=== PATIENT | female | born 1970 | race Caucasian/White ===

== ENCOUNTER 2020-03-20 04:06 | Outpatient (CLI) | payer BC, SELFPAY ==
[2020-03-21 14:42] LABS: COVID-19 RT-PCR UVMMC Result Negative (Negative)
== END 2020-03-20 04:26 ==
PROVIDERS: PCP Physician Assistant Medical; Visit Provider Physician Assistant Medical
DX: R19.7 Diarrhea, unspecified (principal)
CPT/HCPCS: U0003

== ENCOUNTER 2020-04-22 14:30 | Emergency (ER) | payer BC, SELFPAY ==
[2020-04-22 14:40] VITALS: BP 165/90; PULSE 72; RESP 18; TEMP 36.4; O2SAT 99
--- NOTE | 2020-04-22 15:15 | DI.CT_ITS ---
EXAM: CT ABDOMEN PELVIS CTA CLINICAL HISTORY: abdominal pain radiating to back. TECHNIQUE: Imaging Protocol: Axial CT angiography was performed with multi-slice acquisition and m ulti-planar and/or 3D reconstructions. CONTRAST MATERIAL: Intravenous: Omnipaque 350 Contrast volume:63 mL Oral: No COMPARISON: No exams were available for comparison FINDINGS: The examination is limited due to patient motion artifact. ABDOMEN AND PELVIS: Abdomen: Celiac axis/mesenteric arteries: No evidence of occlusion or significant stenosis. Renal Arteries: No evidence of occlusion or significant stenosis. There is a single renal artery per fusing each kidney. Aorta: No evidence of occlusion or significant stenosis. No aneurysm or dissection. Mild atheroscl erosis. Pelvis: Iliac Arteries: No evidence of occlusion or significant stenosis. Mild atherosclerosis. Common Femoral Arteries: No evidence of occlusion or significant stenosis. ABDOMEN: Liver: Normal density. No measurable mass. Portal, Superior Mesenteric, and Splenic Veins: Unremarkable. Gallbladder and Biliary Tract: Status post cholecystectomy. No biliary ductal dilatation. Pancreas: Normal density, no abnormal calcifications or inflammatory process. Spleen: Normal. Adrenals: 1 cm left adrenal nodule. This likely reflects adenoma. Right adrenal gland is unremarkab le. Kidneys: Normal size, contour and axis. No radiodense stones or obstructive uropathy. No masses seen. Bowel: No obstruction or bowel wall thickening. Appendix is unremarkable. Peritoneal Cavity: No ascites, collection or mesenteric inflammatory response. No free air. Lymph Nodes: Within normal limits. Bones: Unremarkable. Soft Tissues: Unremarkable. PELVIS: Bladder: Symmetric distention, no gross wall thickening. Reproductive Organs: Status post hysterectomy. Lymph Nodes: Within normal limits. Bones: Within normal limits. IMPRESSION: 1. Unremarkable abdominal pelvic CT angiogram. 2. No acute abdominal or pelvic process. RADIATION DOSE DELIVERED: 662.1mGy.cm Total DLP 662.1mGy.cm Total DLP DATA REPOSITORY: All CT scans at this facility are submitted to the National Radiology Data Registry (NRDR) Dose Index Registry (DIR) with the [employer] [place] [employer] (A[employer]). RADIATION OPTIMIZATION: All CT scans at this facility use at least one of these dose optimization te chniques: automated exposure control; mA and/or kV adjustment per patient size (includes targeted exa ms where dose is matched to clinical indication); or iterative reconstruction.
--- NOTE | 2020-04-22 15:15 | RT.EKG_ITS ---
APPROVED REPORT Exam: Resting ECG Patient Location: E HR:59 bpm ECG Measurements Heart Rate 59 AXIS NM 152 P 43 QRSd 88 QRS 46 QT 419 T 46 QTc 416 Conclusion Sinus bradycardia...rate< 60 sinus bradycardia at 59, normal axis, no acute ischemic changes, nondiagnostic EKG
[2020-04-22 15:36] LABS: Abs Immature Grans 0.02 10^3/uL (0.0-0.06); Absolute Basophil Count 0.06 10^3/uL (0.0-0.2); Absolute Eosinophil Count 0.14 10^3/uL (0.0-0.7); Absolute Lymphocyte Count 4.73 10^3/uL (1.2-3.4); Absolute Monocyte Count 0.53 10^3/uL (0.1-0.8); Absolute Neutrophil Count 4.64 10^3/uL (1.2-6.7); Basophils % 0.6; Eosinophils % 1.4; HCT 41.3 % (36.0-46.0); HGB 13.6 g/dL (11.2-15.7); Immature Grans % 0.2; Lymphocytes % 46.7; MCH 30.3 pg (27.0-33.0); MCHC 32.9 % (32.0-36.0); MPV 9.8 fL (8.0-11.0); Monocytes % 5.2; Neutrophils % 45.9; Nucleated RBC 0 %; Platelet Count 302 10^3/uL (130-400); RBC 4.49 10^6/uL (3.93-5.22); RDW 12.8 % (11.7-14.6); RDW-SD 43.5 fL; WBC 10.12 10^3/uL (4.4-10.8)
[2020-04-22 15:48] LABS: Lipase 94 U/L (73-393)
[2020-04-22 15:52] LABS: ALT 21 U/L (14-59); AST 11 U/L (15-37); Albumin 3.7 g/dL (3.4-5.0); Alkaline Phosphatase 86 U/L (46-116); Anion Gap 8.5 mmol/L (3-11); BUN 13 mg/dL (7-18); Bilirubin, Total 0.3 mg/dL (0.2-1.0); CO2 27.5 mmol/L (21.0-32.0); CREATININE 0.6 mg/dL (0.55-1.02); Calcium 9.6 mg/dL (8.5-10.1); Chloride 106 mmol/L (98-107); Glucose 89 mg/dL (74-106); Sodium 142 mmol/L (136-145)
[2020-04-22] MEDS: Omnipaque 350 MG/ML 100 ML BTL IJ (15:59)
[2020-04-22] MEDS: Normal Saline - Diluent 50 ML VIAL IV (16:01)
[2020-04-22] MEDS: HYDROmorphone 2 MG/ML VIAL 0.5 MG IVP (16:10)
--- NOTE | 2020-04-22 16:11 | W.ED.GENAD ---
Discharge Plan Disposition Patient Disposition: HOME Condition: Stable Discharge Details Clinical Impression: Abdominal pain Primary Care Provider: Trish Byrd ED Provider: Maria L Ballesteros Home Meds and New Rx's Prescriptions: New famotidine [Pepcid] 40 mg tablet 40 mg PO DAILY Qty: 30 RF: 0 Continued Lantus Solostar U-100 Insulin 100 unit/mL (3 mL) Insulin Pen 36 unit SUBCUT BID RF: 0 Discharge Instructions Instructions: Gastritis (ED), Diet for Stomach Ulcers and Gastritis (ED), Abdominal Pain (ED) Additional Instructions: Please return immediately to the emergency department if you develop any new or worsening symptoms, if your condition does not improve as expected, or if you become otherwise concerned. It is extremely important that you call soon as possible to make an appointment to be seen in follow-up for this visit by your primary care doctor and by a surgeon as we discussed. Referrals: Trish Byrd [Primary Care Provider] - Gaby Carlos MD [ [facility] STAFF PHYSICIAN] - Discharge Data Discharge Date/Time-TO BE ENTERED AT DEPARTURE: 04/22/20 17:31 Medical Decision Making Olena Ashraf is a 49 y/o woman with h/o DM who presented to the emergency department with upper abdominal pain for one month, worsening in the past few days and significantly worse today, now radiating to the back. On exam Pt appears significantly uncomfortable, frequently changing positions in attempt to relieve pain. Benign cardiopulmonary exam. TTP of the upper abdomen, worse in epigastrium. No focal McBPt TTP, neg murphys. No lower quadrant, pelvic TTP. Concern for gastritis, PUD, possible perforation. Given radiation to back, HTN, also concern for acute aortic pathology. Exam/hx not c/w acute coronary syndrome, sepsis, pulmonary embolism, UTI, ureterolithiasis, physical therapist assistant related acute pathology. Plan for CTA abd/pelv, screening labs, IV pain medication, EKG. CTA neg for acute process per radiology. Labs and EKG non-diagnostic. Pt with some improvement in symptoms after pain meds. Pt states on reassessment that she does feel that pain has been worse after meals. States that her PCP started her omeprazole when symptoms began, but this med was discontinued as Pt reports that she had no relief from it. I had a lengthy discussion with Pt re: her diet. Pt states that she smokes cigarettes daily, has continued to have coffee, multiple glasses of lemon water per day and other citrus. She denies eating spicy food. Discussed limiting coffee, citrus, other acidic foods, smoking cessation, and other dietary changes for suspected gastritis/PUD. Pt given GI cocktail. Tolerated PO without issue. Reported no current pain after meds. Plan for trial pepcid, dietary/behavioral changes, outpt f/u with PCP, surgery for possible EGD. I had a lengthy discussion with Patient regarding return to emergency department precautions, home care, and importance of outpatient follow-up. Pt verbalizes understanding of the plan and is amenable. Patient discharged to home with clear plan for outpatient follow-up. All questions were answered. Disposition decision was made weighing the risks and benefits of hospitalization versus outpatient treatment, the risk for further decompensation, and the patient's wishes. Pt placed on care management list for outpt f/u with surgery. Medical Records Medical records reviewed: Yes I reviewed the patient's medical records. Imaging Data Radiologic Study: Attestation: I personally reviewed and interpreted this imaging study as follows: Radiologist's impression: Exam: CT Angiography Abdomen and Pelvis With Contrast Exam date and time: 04/22/2020 3:55 PM Age: 49 years old Clinical indication: Patient HX: Abdominal pain radiating to back TECHNIQUE: Imaging protocol: Computed tomographic angiography of the abdomen and pelvis with contrast material. 3D rendering (Not supervised by radiologist): MIP and/or 3D reconstructed images were created by the technologist. COMPARISON: No relevant prior studies available. FINDINGS: Aorta: No aortic aneurysm. No aortic dissection. Mild calcified plaque. Celiac trunk and mesenteric arteries: No occlusion or significant stenosis. Renal arteries: No occlusion or significant stenosis. Right iliac arteries: No occlusion or significant stenosis. Left iliac arteries: No occlusion or significant stenosis. Liver: No mass. Gallbladder and bile ducts: The gallbladder is surgically absent. Pancreas: Unremarkable. No mass. No ductal dilation. Spleen: Unremarkable. No splenomegaly. Adrenal glands: Unremarkable. No mass. Kidneys and ureters: Unremarkable. No solid mass. No hydronephrosis. Stomach and bowel: Unremarkable. No obstruction. No mucosal thickening. Appendix: No evidence of appendicitis. Intraperitoneal space: Unremarkable. No free air. No significant fluid collection. Lymph nodes: Unremarkable. No enlarged lymph nodes. Urinary bladder: Unremarkable. No mass. Reproductive: Unremarkable as visualized. Bones/joints: No acute fracture. No dislocation. Soft tissues: Unremarkable. IMPRESSION: 1. Status post cholecystectomy. 2. Unremarkable CT angiogram. Lab Data Lab results reviewed: Yes I reviewed the patient's lab results. Labs: Laboratory Tests Range/Units 04/22/20 04/22/20 04/22/20 15:25 15:25 15:25 WBC (4.4-10.8) 10^3/uL 10.12 RBC (3.93-5.22) 10^6/uL 4.49 Hgb (11.2-15.7) g/dL 13.6 Hct (36.0-46.0) % 41.3 MCV (80-95) fL 92.0 MCH (27.0-33.0) pg 30.3 MCHC (32.0-36.0) % 32.9 RDW (11.7-14.6) % 12.8 Plt Count (130-400) 10^3/uL 302 MPV (8.0-11.0) fL 9.8 Immature Gran % 0.2 Neutrophils % 45.9 Lymphocytes % 46.7 Monocytes % 5.2 Eosinophils % 1.4 Basophils % 0.6 Nucleated RBC % % 0 Absolute Neutrophils (1.2-6.7) 10^3/uL 4.64 Absolute Lymphocytes (1.2-3.4) 10^3/uL 4.73 H Absolute Monocytes (0.1-0.8) 10^3/uL 0.53 Absolute Eosinophils (0.0-0.7) 10^3/uL 0.14 Absolute Basophils (0.0-0.2) 10^3/uL 0.06 Sodium (136-145) mmol/L 142 Potassium (3.5-5.1) mmol/L 4.0 Chloride (98-107) mmol/L 106 Carbon Dioxide (21.0-32.0) mmol/L 27.5 Anion Gap (3-11) mmol/L 8.5 BUN (7-18) mg/dL 13 Creatinine (0.55-1.02) mg/dL 0.6 Estimated GFR/1.73 m2 (mL/min/1.73m2) >= 60.00 Glucose (74-106) mg/dL 89 Calcium (8.5-10.1) mg/dL 9.6 Total Bilirubin (0.2-1.0) mg/dL 0.3 AST (15-37) U/L 11 L ALT (14-59) U/L 21 Alkaline Phosphatase (46-116) U/L 86 Total Protein (6.4-8.2) g/dL 8.0 Albumin (3.4-5.0) g/dL 3.7 Lipase (73-393) U/L 94 ECG Data Attestation: I personally reviewed and interpreted this ECG (s) as follows: Interpretation: EKG shows sinus bradycardia at 59, normal axis, no acute ischemic changes, nondiagnostic EKG HPI General Mode of arrival: ambulatory. Date/Time Provider Initiated Documentation: 04/22/20 14:52. Limitations to Documentation: no limitations. Information obtained by: patient, RN notes reviewed and old records reviewed. HPI Narrative: Olena Ashraf is a 49 y/o woman with h/o DM who presents to the emergency department with abdominal pain. Pt reports that she has had upper middle abdominal for the past month, worse in the past few days and now severe. Pt reports that today when pain became severe it began to radiate into the center of her back. Now with upper abdominal pain and central back pain. She reports that she ate today without change in symptoms. Pt states that when pain began one month ago it seemed to occur after eating, now Pt is unsure if eating makes worse. She denies any lower abdominal pain since symptom onset one month ago, any other pain, fevers, vomiting, weakness, numbness, cough, SOB, diarrhea. Related Data Home Medications Medication Instructions Recorded Confirmed Lantus Solostar U-100 Insulin 36 unit SUBCUT BID 04/22/20 04/22/20 famotidine [Pepcid] 40 mg PO DAILY #30 tab 04/22/20 Previous Rx's Medication Instructions Recorded famotidine [Pepcid] 40 mg PO DAILY #30 tab 04/22/20 Allergies Allergy/AdvReac Type Severity Reaction Status Date / Time aspirin Allergy Severe Anaphylaxis Unverified 04/22/20 14:45 influenza A (H1N1) virus Allergy Severe Anaphylaxis Unverified 04/22/20 14:44 vaccine m-filipe-split 2008 [From influenza A (H1N1)] lisinopril AdvReac Skin Rash Unverified 04/22/20 14:45 General Stated Complaint: Abd Prob SANGITA: 3 Review of Systems Narrative: Constitutional: denies fevers Eyes: denies eye pain ENT: denies ear pain, dental pain, sore throat Cardiovascular: denies chest pain Respiratory: denies SOB, cough GI: denies vomiting, diarrhea, reports abdominal pain : denies flank pain MSK: denies back pain, neck pain, arthralgias, myalgias Skin: denies rash Neuro: denies headaches, numbness, weakness PFSH Social History Smoking/Tobacco Use Status: Current every day Tobacco Type: cigarettes Smoking risk assessment performed?: Yes Alcohol Intake: current Alcohol Intake frequency: holidays/special occasions only Drug use: Never Substance use type: does not use Do you feel safe at home: Yes Do you feel safe in your relationship?: Yes Exam Narrative Exam Narrative: Constitutional: appears uncomfortable and in distress, [id number], conversing normally HENT: head atraumatic/normocephalic/normal inspection, mucous membranes moist Eyes: conjunctiva normal, sclera normal, pupils 3mm b/l Neck: no stridor, normal ROM, trachea midline Chest: normal inspection Resp: normal work of breathing, LCTAB Cardio: normal rate, normal rhythm, no murmur appreciated GI: abdomen soft, diffuse significant TTP of the upper abdomen, worse in epigastrium, no TTP of the lower quadrants or pelvic area, no rebound or guarding, neg murphys, no mass, non-distended Back: normal inspection, no rash, NTTP, no CVA TTP Skin: warm, dry, normal color, no rash Neuro: alert, not altered, grossly non-focal, normal tone Ext: no edema, moving all extremities equally Psych: normal mood, normal affect, normal behavior Course Vital Signs Vital signs: Vital Signs Temperature 36.4 C L 04/22/20 14:40 Pulse 72 04/22/20 14:40 Respiratory Rate 18 04/22/20 14:40 Blood Pressure 165/90 H 04/22/20 14:40 Pulse Oximetry 99 04/22/20 14:40 Temperature 36.4 C L 04/22/20 14:40 Temperature Source Temporal Artery Scan 04/22/20 14:40 Pulse 72 04/22/20 14:40 Respiratory Rate 18 04/22/20 14:40 Respiratory Effort Non-Labored 04/22/20 14:46 Blood Pressure 165/90 H 04/22/20 14:40 Blood Pressure Position Sitting 04/22/20 14:40 Pulse Oximetry 99 04/22/20 14:40 Oxygen Delivery Method Room Air 04/22/20 14:40 Oxygen Flow Rate 0 04/22/20 14:40 Pain Level 10 04/22/20 14:46 Lab/Test Results Lab/Test Results: Laboratory Tests Range/Units 04/22/20 04/22/20 04/22/20 15:25 15:25 15:25 WBC (4.4-10.8) 10^3/uL 10.12 RBC (3.93-5.22) 10^6/uL 4.49 Hgb (11.2-15.7) g/dL 13.6 Hct (36.0-46.0) % 41.3 MCV (80-95) fL 92.0 MCH (27.0-33.0) pg 30.3 MCHC (32.0-36.0) % 32.9 RDW (11.7-14.6) % 12.8 Plt Count (130-400) 10^3/uL 302 MPV (8.0-11.0) fL 9.8 Immature Gran % 0.2 Neutrophils % 45.9 Lymphocytes % 46.7 Monocytes % 5.2 Eosinophils % 1.4 Basophils % 0.6 Nucleated RBC % % 0 Absolute Neutrophils (1.2-6.7) 10^3/uL 4.64 Absolute Lymphocytes (1.2-3.4) 10^3/uL 4.73 H Absolute Monocytes (0.1-0.8) 10^3/uL 0.53 Absolute Eosinophils (0.0-0.7) 10^3/uL 0.14 Absolute Basophils (0.0-0.2) 10^3/uL 0.06 Sodium (136-145) mmol/L 142 Potassium (3.5-5.1) mmol/L 4.0 Chloride (98-107) mmol/L 106 Carbon Dioxide (21.0-32.0) mmol/L 27.5 Anion Gap (3-11) mmol/L 8.5 BUN (7-18) mg/dL 13 Creatinine (0.55-1.02) mg/dL 0.6 Estimated GFR/1.73 m2 (mL/min/1.73m2) >= 60.00 Glucose (74-106) mg/dL 89 Calcium (8.5-10.1) mg/dL 9.6 Total Bilirubin (0.2-1.0) mg/dL 0.3 AST (15-37) U/L 11 L ALT (14-59) U/L 21 Alkaline Phosphatase (46-116) U/L 86 Total Protein (6.4-8.2) g/dL 8.0 Albumin (3.4-5.0) g/dL 3.7 Lipase (73-393) U/L 94
--- NOTE | 2020-04-22 16:19 | DI.VRAD_ITS ---
PROCEDURE INFORMATION: Exam: CT Angiography Abdomen and Pelvis With Contrast Exam date and time: 04/22/2020 3:55 PM Age: 49 years old Clinical indication: Patient HX: Abdominal pain radiating to back TECHNIQUE: Imaging protocol: Computed tomographic angiography of the abdomen and pelvis with contrast material. 3D rendering (Not supervised by radiologist): MIP and/or 3D reconstructed images were created by the technologist. COMPARISON: No relevant prior studies available. FINDINGS: Aorta: No aortic aneurysm. No aortic dissection. Mild calcified plaque. Celiac trunk and mesenteric arteries: No occlusion or significant stenosis. Renal arteries: No occlusion or significant stenosis. Right iliac arteries: No occlusion or significant stenosis. Left iliac arteries: No occlusion or significant stenosis. Liver: No mass. Gallbladder and bile ducts: The gallbladder is surgically absent. Pancreas: Unremarkable. No mass. No ductal dilation. Spleen: Unremarkable. No splenomegaly. Adrenal glands: Unremarkable. No mass. Kidneys and ureters: Unremarkable. No solid mass. No hydronephrosis. Stomach and bowel: Unremarkable. No obstruction. No mucosal thickening. Appendix: No evidence of appendicitis. Intraperitoneal space: Unremarkable. No free air. No significant fluid collection. Lymph nodes: Unremarkable. No enlarged lymph nodes. Urinary bladder: Unremarkable. No mass. Reproductive: Unremarkable as visualized. Bones/joints: No acute fracture. No dislocation. Soft tissues: Unremarkable. IMPRESSION: 1. Status post cholecystectomy. 2. Unremarkable CT angiogram. Dictated and Authenticated by: Griffin Valente MD. Ordering:CASE Lisa MD
[2020-04-22] MEDS: Normal Saline Flush 10 ML SYR IVP (16:21)
[2020-04-22 17:25] VITALS: BP 145/87; PULSE 58; RESP 14; TEMP 36.4; O2SAT 99
--- NOTE | 2020-04-22 17:50 | NUR.NOTE ---
REFERRAL FAXED TO [facility].Nursing Note:
== END 2020-04-22 17:31 | disposition home or self-care (01) ==
PROVIDERS: Emergency Provider Student in an Organized Health Care Education/Training Program; PCP Physician Assistant Medical
DX: R10.10 Upper abdominal pain, unspecified (principal); E11.9 Type 2 diabetes mellitus without complications
CPT/HCPCS: 36415; 80053; 83690; 93005; 96374; 99285; 74174; 85025; 93010; J3490

== ENCOUNTER 2023-08-03 10:00 | Emergency (ER) | payer OTHER, SELFPAY ==
[2023-08-03 10:08] VITALS: BP 187/92; PULSE 97; RESP 15; TEMP 36.8; O2SAT 99
[2023-08-03 10:33] LABS: Bilirubin Negative (Negative); Blood Negative (Negative); Clarity Clear (Clear); Glucose >=1000 mg/dL (Negative); Ketones Negative (Negative); Leukocyte Esterase Negative (Negative); Nitrite Negative (Negative); Urobilinogen 0.2 mg/dL (Up to 0.2)
--- NOTE | 2023-08-03 10:37 | W.ED.GENAD ---
Discharge Plan Disposition Patient Disposition: Home Condition: Improving Discharge Details Clinical Impression: Back strain Primary Care Provider: Trish Byrd ED Provider: Alexei Leyva Home Meds and New Rx's Prescriptions: New lidocaine [Lidoderm] 5 % adhesive patch,medicated 1 patch topical DAILY Qty: 15 0RF Rx Instructions: leave on most painful area for up to 12 hrs cyclobenzaprine 5 mg tablet 5 mg PO QHS PRN (Reason: muscle spasm) Qty: 7 0RF No Action insulin glargine [Lantus Solostar U-100 Insulin] 100 unit/mL (3 mL) Insulin Pen 36 unit SUBCUT BID famotidine [Pepcid] 40 mg tablet 40 mg PO DAILY Qty: 30 0RF acetaminophen 500 mg capsule 1,000 mg PO Q6H PRN Discharge Instructions Instructions: Low Back Strain (ED) HPI General Date/Time Provider Initiated Documentation: 08/03/23 10:04. HPI Narrative: 53-year-old female presents with left lower back pain over the last several days, started when she bent over while loading the car, pain rating down left hip down leg sharp in nature worse with movement, also endorsing paresthesia to left hand, has noted that her sugars have been out of control over the last couple of days as high as 400, has been off of her medication due to insurance issues. No chest pain or shortness of breath no vomiting, no bowel or bladder incontinence, no paresthesia or anesthesia in the genital region. No recent falls. Related Data Home Medications Medication Instructions Recorded Confirmed famotidine 40 mg tablet (Pepcid) 40 mg PO DAILY #30 tabs 04/22/20 08/03/23 insulin glargine 100 unit/mL (3 36 unit subcut BID 04/22/20 08/03/23 mL) subcutaneous pen (Lantus Solostar U-100 Insulin) acetaminophen 500 mg capsule 1,000 mg PO Q6H PRN 08/03/23 08/03/23 cyclobenzaprine 5 mg tablet 5 mg PO QHS PRN muscle spasm #7 08/03/23 tabs lidocaine 5 % topical patch 1 patch topical DAILY #15 ea 08/03/23 (Lidoderm) Previous Rx's Medication Instructions Recorded famotidine 40 mg tablet (Pepcid) 40 mg PO DAILY #30 tabs 02/08/21 cyclobenzaprine 5 mg tablet 5 mg PO QHS PRN muscle spasm #7 08/03/23 tabs lidocaine 5 % topical patch 1 patch topical DAILY #15 ea 08/03/23 (Lidoderm) Allergies Allergy/AdvReac Type Severity Reaction Status Date / Time aspirin Allergy Severe Anaphylaxis Unverified 04/22/20 14:45 influenza A (H1N1) virus Allergy Severe Anaphylaxis Unverified 04/22/20 14:44 vaccine m-filipe-split 2008 [From influenza A (H1N1)] lisinopril AdvReac Skin Rash Unverified 04/22/20 14:45 General Stated Complaint: Nk/Back Pain SANGITA: 3 Review of Systems Narrative: Review of Systems Constitutional: negative Eyes: negative ENT: negative Cardiovascular: negative Respiratory: negative Gastrointestinal: negative : negative Musculoskeletal: Leg pain, back pain Skin: negative Neurologic: negative Psych: negative Exam Narrative Exam Narrative: Physical Examination General: alert, awake, cooperative, resting comfortably, no acute distress HEENT: normocephalic, atraumatic; PERRL, EOM intact, conjunctiva normal; no nasal discharge; moist mucous membranes, oral and pharyngeal mucosa normal, tolerating secretions Neck: supple, trachea midline; full ROM Chest: normal to inspection Respiratory: normal respiratory effort, speaking in full sentences Back: Tenderness in the paraspinal region left lumbar back, no midline spinal tenderness step-off crepitus or deformity Skin: no lesions, rashes or trauma appreciated Neuro: AAOx3, normal speech, moving all extremities; 5-5 strength upper and lower extremities bilaterally ambulatory without assistance, no ataxia Extremities: Full range of motion, ambulatory Psych: Appropriate mood and affect Course Vital Signs Vital signs: Vital Signs Temperature 36.8 C 08/03/23 10:08 Pulse 97 H 08/03/23 10:08 Respiratory Rate 15 08/03/23 10:08 Blood Pressure 187/92 H 08/03/23 10:08 Pulse Oximetry 99 08/03/23 10:08 Temperature 36.8 C 08/03/23 10:08 Temperature Source Oral 08/03/23 10:08 Pulse 97 H 08/03/23 10:08 Respiratory Rate 15 08/03/23 10:08 Respiratory Effort Normal 08/03/23 10:11 Blood Pressure 187/92 H 08/03/23 10:08 Blood Pressure Position Sitting 08/03/23 10:08 Pulse Oximetry 99 08/03/23 10:08 Oxygen Delivery Method Room Air 08/03/23 10:08 Oxygen Flow Rate 0 08/03/23 10:08 Pain Level 10 08/03/23 10:11 Lab/Test Results Lab/Test Results: Laboratory Tests Range/Units 08/03/23 10:21 Urine Color (Yellow) Yellow Urine Clarity (Clear) Clear Urine pH (5-8) 6.0 Ur Specific [place] (1.005-1.025) 1.010 Urine Protein (Neg-Trace) mg/dL Negative Urine Ketones (Negative) mg/dL Negative Urine Blood (Negative) Negative Urine Nitrite (Negative) Negative Urine Bilirubin (Negative) Negative Urine Urobilinogen (Up to 0.2) mg/dL 0.2 Ur Leukocyte Esterase (Negative) Negative Urine Glucose (Negative) mg/dL >=1000 H POC- Test(urine) Negative Medical Decision Making 53-year-old female presents with left lower back discomfort rating down left leg over the last day, began while bending and loading car, no bowel or bladder issues, no saddle anesthesia or paresthesia, patient has paraspinal lumbar discomfort on palpation, ambulatory without assistance full strength upper and lower extremities bilaterally cranial nerves intact normal speech, patient has mild paresthesia to the left hand has endorsed hyperglycemia over the last several days has been noncompliant with her medication due to insurance issues. Likely sciatica/lumbar strain as predominant cause of symptomatology however paresthesia of hand might be related to metabolic derangement in the setting of uncontrolled hyperglycemia lower suspicion for ACS PE or aortic pathology. Low suspicion for spinal cord trauma abscess mass or hematoma given history and physical. Will obtain basic labs will provide IV fluid analgesia anti-inflammatory muscle relaxant 12: 21 patient resting comfortably getting some relief from medication. Noted to have hyperglycemia. Patient has been off of her Lantus for 2 years due to not having a primary care physician. Is currently working on obtaining a new primary care physician. Quality:SDOH Health Related Social Needs: No Data to Display PFSH All Active Problems (Updated 08/03/23 @ 12:21 by Alexei Leyva MD) Back strain (Acute) Social History Smoking/Tobacco Use Status: Current every day Tobacco Type: cigarettes Smoking risk assessment performed?: Yes Alcohol Intake: current Alcohol Intake frequency: holidays/special occasions only Drug use: Never Substance use type: does not use Do you feel safe at home: Yes Do you feel safe in your relationship?: Yes
[2023-08-03 10:39] LABS: Bacteria Negative HPF (Negative); C & S Indicated? No; Casts Negative LPF (Negative); Crystals Negative HPF (Negative); Epithelial Cells Few HPF (Negative); Mucus Negative (Negative); RBC 0-2 HPF (0-2); WBC 0-2 HPF (0-5)
[2023-08-03] MEDS: LORazepam 0.5 MG TAB (10:46)
[2023-08-03] MEDS: Lidocaine 5% Patch 1 PATCH TP (10:46)
[2023-08-03] MEDS: Cyclobenzaprine 10 MG TAB PO (10:46)
[2023-08-03 11:06] LABS: Abs Immature Grans 0.03 10^3/uL (0.0-0.06); HCT 48.2 % (36.0-46.0); HGB 15.9 g/dL (11.2-15.7); MCH 30.2 pg (27.0-33.0); MCV 92 fL (80-95); Platelet Count 277 10^3/uL (130-400); RBC 5.26 10^6/uL (3.93-5.22); RDW 12.8 % (11.7-14.6); RDW-SD 43.4 fL; WBC 10.94 10^3/uL (4.4-10.8)
[2023-08-03 11:07] VITALS: BP 136/80; PULSE 79; RESP 20; TEMP 36.9; O2SAT 99
[2023-08-03] MEDS: Normal Saline 1,000 ML 1000 ML IV (11:12)
[2023-08-03 11:16] LABS: Absolute Eosinophil Count 0.11 10^3/uL (0.0-0.7); Absolute Lymphocyte Count 4.81 10^3/uL (1.2-3.4); Absolute Monocyte Count 0.22 10^3/uL (0.1-0.8); Atypical Lymphocytes % 1 %; Diff Comment Manual Differential; RBC Morphology Normal
[2023-08-03 11:21] LABS: ALT 22 U/L (14-59); AST 8 U/L (15-37); Albumin 4.4 g/dL (3.4-5.0); Alkaline Phosphatase 141 U/L (46-116); Anion Gap 12.4 mmol/L (3-11); BUN 12 mg/dL (7-18); Bilirubin, Total 0.3 mg/dL (0.2-1.0); CO2 26.6 mmol/L (21.0-32.0); CREATININE 0.7 mg/dL (0.55-1.02); Calcium 10.2 mg/dL (8.5-10.1); Chloride 98 mmol/L (98-107); Estimated GFR 104.65 (mL/min/1.73m2); Glucose 354 mg/dL (74-106); Potassium 4.1 mmol/L (3.5-5.1); Sodium 137 mmol/L (136-145); Total Protein 9.2 g/dL (6.4-8.2)
[2023-08-03 12:37] VITALS: BP 134/82; PULSE 79; RESP 16; TEMP 36.9; O2SAT 99
== END 2023-08-03 12:54 | disposition home or self-care (01) ==
PROVIDERS: Emergency Provider Emergency Medicine; PCP Physician Assistant Medical
DX: S39.012A Strain of muscle, fascia and tendon of lower back, initial encounter (principal); M54.50 Low back pain, unspecified; X58.XXXA Exposure to other specified factors, initial encounter
CPT/HCPCS: 36415; 80053; 81025; 96360; 99284; 81003; 81015; 85025; 99283

== ENCOUNTER 2023-10-06 08:17 | Emergency (ER) | payer OTHER, SELFPAY ==
[2023-10-06] VITALS (35 sets, daily range): BP systolic 133–192; BP diastolic 65–92; PULSE 55–81; RESP 6–25; TEMP 36.3; O2SAT 93–100
--- NOTE | 2023-10-06 08:15 | RT.EKG_ITS ---
APPROVED REPORT Exam: Resting ECG Reason for Exam: dizziness Patient Location: E HR:65 bpm ECG Measurements Heart Rate 65 AXIS OR 146 P 71 QRSd 89 QRS 68 QT 414 T 59 QTc 432 Conclusion Sinus rhythm...normal P axis, V-rate 60- 99 sinus rhtyhm, normal axis, normal intervals, non ischmeic
--- NOTE | 2023-10-06 08:30 | DI.CT_ITS ---
Exam(s) CT BRAIN NECK CTA EXAM: CT BRAIN NECK CTA CLINICAL HISTORY: Right vision loss, dizziness. TECHNIQUE: Imaging Protocol: Axial CT angiography was performed with multi-slice acquisition and mu lti-planar and/or 3D reconstructions. CONTRAST MATERIAL: Intravenous: Omnipaque 350 contrast volume:100 mL COMPARISON: No exams were available for comparison FINDINGS: The examination is limited due to patient motion artifact. CT Head W/O and W: Ventricles and Extra axial spaces: Normal in size and morphology for the patient's age. Hemorrhage: None. Cerebral parenchyma: No acute mass effect is identified. No evidence of an acute territorial infarct . Midline shift: None. Brainstem/Cerebellum: Normal. Calvarium: Normal. Visualized Paranasal sinuses/Mastoids: Clear. Soft Tissues: Unremarkable. The orbits and retro-orbital soft tissues are unremarkable. The pituitar y gland and infundibulum are unremarkable. There is no evidence of a suprasellar mass. Enhancement: Unremarkable. CTA Neck W: Common Carotid: Right: No dissection, occlusion or significant stenosis. Left: No dissection, occlusion or significant stenosis. External Carotid: Right: No occlusion or significant stenosis. Left: No occlusion or significant stenosis. Internal Carotid: Right: No dissection, occlusion or significant stenosis. Left: No dissection, occlusion or significant stenosis. Vertebral Artery: Right: No dissection, occlusion or significant stenosis. There is a dominant right vertebral artery. Left: The proximal left vertebral artery is not visualized. The vertebral artery is visualized begi nning at C5-C6 level and is visualized distally through its entirety. Lung Apices: Mild centrilobular emphysematous changes are seen in the lung apices. Bones: Within normal limits for the patient's age. There are degenerative changes seen in the cervica l spine particularly at C4-5 through C6-C7. Soft Tissues: Normal. Thyroid gland: Unremarkable. CTA Brain W: Internal Carotid Arteries: No evidence of an aneurysm, occlusion or significant stenosis. Anterior Cerebral Arteries: Right: No aneurysm, occlusion or significant stenosis. Left: No aneurysm, occlusion or significant stenosis. Middle Cerebral Arteries: Right: No aneurysm, occlusion or significant stenosis. Left: No aneurysm, occlusion or significant stenosis. Posterior Cerebral Arteries: Right: No aneurysm, occlusion or significant stenosis. Left: No aneurysm, occlusion or significant stenosis. Vertebral Arteries: Right: No aneurysm, occlusion or significant stenosis. Left: No aneurysm, occlusion or significant stenosis. Basilar Artery: No aneurysm, occlusion or significant stenosis. IMPRESSION: 1. No large vessel occlusion or significant stenosis on the CT angiography of the head. 2. No acute intracranial process. 3. The proximal left vertebral artery is not visualized from its origin to about the C5-6 level. The subsequent left vertebral artery is visualized through its entirety. There is a dominant right vert ebral artery. 4. Findings were discussed with the Nicole Loomis at 10:50 a.m. on 10/06/2023. RADIATION DOSE DELIVERED: Total DLP DATA REPOSITORY: All CT scans at this facility are submitted to the National Radiology Data Registry (NRDR) Dose Index Registry (DIR) with the [employer] (ACR). RADIATION OPTIMIZATION: All CT scans at this facility use at least one of these dose optimization te chniques: automated exposure control; mA and/or kV adjustment per patient size (includes targeted exa ms where dose is matched to clinical indication); or iterative reconstruction.
--- NOTE | 2023-10-06 08:31 | ED.GENADUL_ITS ---
Discharge Plan Disposition Patient Disposition: Home Condition: Stable Discharge Details Clinical Impression: Visual disturbance, Anxiety, Dizziness of unknown cause Primary Care Provider: Ralf Teague ED Provider: Nicole Loomis Home Meds and New Rx's Prescriptions: New meclizine 12.5 mg tablet 12.5 mg PO TID PRN (Reason: dizziness) 3 Days Qty: 10 0RF Rx Instructions: Take 1 tablet 3 times daily as needed for dizziness meclizine 12.5 mg tablet 12.5 mg PO TID PRN (Reason: dizziness) 3 Days Qty: 10 0RF Rx Instructions: Take 1 tablet by mouth 3 times daily as needed for dizziness, will make you sleepy Continued insulin degludec [Tresiba FlexTouch U-100] 100 unit/mL (3 mL) insulin pen 36 unit subcut QHS Qty: 15 6RF acetaminophen 500 mg capsule 1,000 mg PO Q6H PRN Discharge Instructions Instructions: Age-related vision loss, Floaters in the Eye, Anxiety, Adult ED, Dizziness, Adult ED Additional Instructions: At this time no evidence of stroke on the CT imaging. You do appear to be a little bit dehydrated on your labs, no evidence of pneumonia. No urinary tract infection. No evidence of retinal detachment or increased pressure to your eyes. Please follow-up with [facility] within the next couple of days. You were placed on a care management list they will assist you in getting a referral to Dr. Vanegas at [facility]. If you are unable to get in with them this week please see [facility] ophthalmology. You were also placed on a care management referral for that. Please follow-up regarding the right eye vision loss and seeing floaters. Please return to the ER if you have any worsening headache, confusion, weakness or on one side of your body or the other, trouble walking, chest pain shortness of breath fever. Referrals: Ralf Teague DO [Primary Care Provider] - 2 weeks Alexei Vanegas MD [ [facility] STAFF PHYSICIAN] - 3 days (Right eye vision loss) Cale Reza MD [ NON-[facility] STAFF PHYSICIAN] - Discharge Data Discharge Date/Time-TO BE ENTERED AT DEPARTURE: 10/06/23 12:53 HPI General Mode of arrival: wheelchair . Date/Time Provider Initiated Documentation: 10/06/23 08:19 . Limitations to Documentation: no limitations . Information obtained by: patient, RN notes reviewed and old records reviewed . HPI Narrative: 53-year-old female presents to the ER via wheelchair chief complaint of feeling like she is crashing, she reports dizziness blurry vision occasional headaches. She presents very anxious, slightly diaphoretic. She recently diagnosed with insulin-dependent diabetes and takes 36 units at bedtime of insulin degludec/Tresiba which she took last night. She did not eat breakfast this morning. Upon arrival her blood sugar is 153 she is slightly hypertensive with a blood pressure 170/90, pulse rate of 81 normal sinus rhythm. Satting 100% on room air. She has no gross motor neurodeficits noted. She denies any abdominal pain denies any nausea vomiting diarrhea. Denies any dysuria or problems urinating. She is complaining of left leg pain which is not new. She does have a past medical history of abnormal mammogram hysterectomy and . She is a daily smoker. Denies any drugs or alcohol. She reports she does have a history of hypertension but does not take any HTN medications currently. Related Data Home Medications ?Medication ?Instructions ?Recorded ?Confirmed acetaminophen 500 mg capsule 1,000 mg PO Q6H PRN 08/03/23 09/28/23 insulin degludec 100 unit/mL (3 36 unit (0.36 mL) subcut QHS #15 mL 09/28/23 09/28/23 mL) subcutaneous pen (Tresiba FlexTouch U-100 insulin) meclizine 12.5 mg tablet 12.5 mg PO TID PRN dizziness 3 10/06/23 days #10 tabs meclizine 12.5 mg tablet 12.5 mg PO TID PRN dizziness 3 10/06/23 days #10 tabs Previous Rx's ?Medication ?Instructions ?Recorded insulin degludec 100 unit/mL (3 36 unit (0.36 mL) subcut QHS #15 mL 09/28/23 mL) subcutaneous pen (Tresiba FlexTouch U-100 insulin) meclizine 12.5 mg tablet 12.5 mg PO TID PRN dizziness 3 10/06/23 days #10 tabs meclizine 12.5 mg tablet 12.5 mg PO TID PRN dizziness 3 10/06/23 days #10 tabs Allergies Allergy/AdvReac Type Severity Reaction Status Date / Time aspirin Allergy Severe Anaphylaxis Unverified 09/28/23 08:39 bee venom protein (honey bee) Allergy Severe Unknown Verified 09/28/23 08:39 influenza A (H1N1) virus Allergy Severe Anaphylaxis Unverified 09/28/23 08:39 vaccine [id number] 2008 (From influenza A (H1N1)) atorvastatin (From Lipitor) Allergy Intermediate Unknown Verified 09/28/23 08:39 lisinopril AdvReac Skin Rash Unverified 09/28/23 08:39 General Stated Complaint: Dizzy/Sync SANGITA: 3 Review of Systems All systems reviewed & are unremarkable except as noted in HPI and below Constitutional Constitutional: Reports as per HPI and Reports headache(s) Eyes Eyes: Reports blurry vision ENT Ears, Nose, Mouth, and Throat: Reports dizziness and Reports headache(s) Cardiovascular Cardiovascular: Denies chest pain and Denies dyspnea Respiratory Respiratory: Denies dyspnea Gastrointestinal Gastrointestinal: Denies abdominal pain, Denies diarrhea, Denies nausea and Denies vomiting Neurologic Neurologic: Reports dizziness and Reports headache(s) Psychiatric Psychiatric: Reports anxiety Exam Narrative Exam Narrative: Constitutional: Patient arrives very anxious, thin body habitus, states I feel like I am going to crash. Head: Normocephalic, no trauma. Eyes: Right exotropia, questionably slightly cloudy pupil, no red reflex noted on the right eye, pupil 5 mm and sluggish, pupil on the left 3 mm brisk. Patient complaining of seeing floaters, flashes and colors. Reports complete vision loss and only seeing shadows up to the right eye for the last 6 months. ENT: Bilateral TM's WNL, External ear normal to inspection, no mastoid TTP, swelling, or erythema, Nasal turbinates WNL, no nasal discharge. Poor dentition, multiple dental caries noted, posterior pharynx WNL, no exudate. Chest: RRR, Normal S1, S2, distal pulses intact. Resp: Lungs clear to auscultation bilaterally, no wheezes, rales, or rhonchi. Abdomen: Soft, non-distended, Normoactive bowel sounds all 4 quads. Musculoskeletal: Unable to assess gait, moves all 4 extremities without difficulty. Skin: No suspicious rashes or lesions. Capillary refill less than 2 sec. Neurologic: Cranial nerves II-XII intact. Alert and oriented x 3. Motor: No deficits noted. Sensory: Intact bilaterally all 4 extremities. Tongue midline, no facial droop, no pronator drift, no leg drop. Hematologic/Lymphatic: No ecchymosis, no lymphadenopathy. Course Vital Signs Vital signs: Vital Signs Temperature 36.3 C L 10/06/23 08:21 Pulse 81 10/06/23 08:21 Respiratory Rate 22 10/06/23 08:21 Blood Pressure 170/90 H 10/06/23 08:21 Pulse Oximetry 100 10/06/23 08:21 Temperature 36.3 C L 10/06/23 08:21 Temperature Source Oral 10/06/23 08:21 Pulse 81 10/06/23 08:21 Respiratory Rate 22 10/06/23 08:21 Respiratory Effort Labored, Accessory Muscle Use, Incrsd Work of Breathing 10/06/23 08:28 Blood Pressure 170/90 H 10/06/23 08:21 Blood Pressure Position Sitting 10/06/23 08:21 Pulse Oximetry 100 10/06/23 08:21 Oxygen Delivery Method Room Air 10/06/23 08:21 Oxygen Flow Rate 0 10/06/23 08:21 Medical Decision Making 53-year-old female presents to the ER via wheelchair chief complaint of feeling like she is crashing, she reports dizziness blurry vision occasional headaches. She presents very anxious, slightly diaphoretic. She is insulin-dependent diabetes and takes 36 units at bedtime of insulin degludec/Tresiba which she took last night. She did not eat breakfast this morning. Upon arrival her blood sugar is 153 she is slightly hypertensive with a blood pressure 170/90, pulse rate of 81 normal sinus rhythm. Satting 100% on room air. She has no gross motor neurodeficits noted. She denies any abdominal pain denies any nausea vomiting diarrhea. Denies any dysuria or problems urinating. She is complaining of left leg pain which is not new. She does have a past medical history of abnormal mammogram hysterectomy and . She is a daily smoker. Denies any drugs or alcohol. She reports she does have a history of hypertension but does not take any HTN medications currently. EKG was reviewed by Dr. Harriett Ramirez and myself ER attending, normal sinus rhythm, no ischemic changes or ST elevation. Please see official report, old EKG available for review On further exam patient reports that she has had no vision to her right eye in the last 6 months. There is loss of red reflex noted to her right eye, pupil 5mm and sluggish, the right pupil looks slightly opaque. Left pupil is 3 mm and reactive EOMs intact, no nystagmus. Patient began complaining of dizziness while laying in bed, she is tearful, does have a history of migraines at the age of 22. [address] changed to CTA brain and neck. Extensive workup ordered including CBC CMP serial troponins, PT PTT lactate, hemoglobin A1c urinalysis, lipase Liter of normal saline ordered. 0.5 mg lorazepam for nausea and anxiety ordered. Differential diagnosis includes but not limited to CVA/TIA, anxiety, CAD, electrolyte disturbance, hypoglycemic episode however her blood sugar is 153 at this time. 0930: informed by nurse staff that patient's vision is changing she is seeing colors now, and spots out of her left eye. She is still displaying anxiety. She also reports intermittent dizziness. Vital signs remained stable. I did instruct staff to accompany her to mobile CT unit. An additional 0.5 mg of lorazepam IV given prior to transport to CT imaging. She has had a total of 1 mg IV at this time. Spoke with radiologist regarding CTA unable to visualize the proximal left vertebral artery please see official report however no dissection noted. This could be due to the mobile CT and imaging technique, will reevaluate patient. Do POCUS exam to evaluate retina and evaluate IOC. Intraocular pressure obtained 12.9 to her right eye 12.7 to her left eye she has a mild sensitivity noted to the lateral aspect of her right eye. Will perform bedside ultrasound to evaluate retina and ocular nerves if possible. Will refer patient to ophthalmology on reevaluation she reports she feels better at this time there is no more visual disturbances patient appears much more comfortable. Upon further conversation with patient she reports that she has had diabetes since age 19 and has been off the insulin for the last year and a half due to insurance issues and financial issues. Urinalysis is pending at this time, and additional fluids ordered. Dr. Guerra at bedside for assistance with POCUS exam to evaluate I, no retinal hemorrhage or vitreous abnormality or hemorrhage noted on exam, visualized optic nerve and lens. Will have patient follow-up with [place] or ophthalmology at [facility] within the next week. Placed on care management list for opthamology referral in next 3-5 days to a week. Repeat Troponin within normal limits. Spoke at length with patient regarding her results, did stress the importance of following up with ophthalmology, also discussed possibility of peripheral vascular disease, restless leg syndrome she reports she has been having hard time sleeping at night. Will send her with some meclizine for the dizziness did instruct her to return for any signs or symptoms of stroke chest pain shortness of breath fever vomiting or any concerns. She verbalized understanding. I did instruct her to cut back on smoking and discussed diet. Patient discharged in hemodynamically stable into the care of her . Patient remained hemodynamically stable throughout the remainder of her stay. Alert and oriented. This text was generated using [employer] system, please disregard any oddities of phrase or misspellings. Medical Records Medical records reviewed: Yes I reviewed the patient's medical records. Medical records narrative: Seen by PCP 09-28-23 placed on Trisiba Insulin degludec 36 units at bedtime. Imaging Data Radiologic Study: Imaging: CT Scan Radiologist's impression: IMPRESSION: 1. No large vessel occlusion or significant stenosis on the CT angiography of the head. 2. No acute intracranial process. 3. The proximal left vertebral artery is not visualized from its origin to about the C5-6 level. The subsequent left vertebral artery is visualized through its entirety. There is a dominant right vertebral artery. 4. Findings were discussed with the Nicole Loomis at 10:50 a.m. on 10/06/2023. Lab Data Lab results reviewed: Yes I reviewed the patient's lab results. Labs: Laboratory Tests Range/Units 10/06/23 10/06/23 10/06/23 08:30 08:42 08:43 WBC (4.4-10.8) 10^3/uL 9.82 RBC (3.93-5.22) 10^6/uL 4.72 Hgb (11.2-15.7) g/dL 14.3 Hct (36.0-46.0) % 43.6 MCV (80-95) fL 92 MCH (27.0-33.0) pg 30.3 MCHC (32.0-36.0) % 32.8 RDW (11.7-14.6) % 13.1 Plt Count (130-400) 10^3/uL 300 MPV (8.0-11.0) fL 9.8 Immature Gran % % 0.1 Neutrophils % % 52.0 Lymphocytes % % 40.7 Monocytes % % 4.6 Eosinophils % % 1.8 Basophils % % 0.8 Nucleated RBC % (0.0-0.3) % 0.0 Absolute Neutrophils (1.2-6.7) 10^3/uL 5.10 Absolute Lymphocytes (1.2-3.4) 10^3/uL 4.00 H Absolute Monocytes (0.1-0.8) 10^3/uL 0.45 Absolute Eosinophils (0.0-0.7) 10^3/uL 0.18 Absolute Basophils (0.0-0.2) 10^3/uL 0.08 PT (9.1-11.1) sec 9.9 INR (0.9-1.1) 1.0 APTT (23.6-32.8) sec 28.5 D-Dimer (<500) ng/mlFEU 394 VBG Lactate (0.6-1.4) mmol/L 1.8 H Sodium (136-145) mmol/L 142 Potassium (3.5-5.1) mmol/L 4.2 Chloride (98-107) mmol/L 105 Carbon Dioxide (21.0-32.0) mmol/L 26.8 Anion Gap (3-11) mmol/L 10.2 BUN (7-18) mg/dL 7 Creatinine (0.55-1.02) mg/dL 0.7 Est GFR (CKD-EPI 2020) (mL/min/1.73m2) 104.65 Glucose (74-106) mg/dL 145 H Hemoglobin A1c (<5.7) % 12.5 H Calcium (8.5-10.1) mg/dL 9.6 Magnesium (1.8-2.4) mg/dL 1.9 Total Bilirubin (0.2-1.0) mg/dL 0.47 AST (15-37) U/L 25 ALT (14-59) U/L 34 Alkaline Phosphatase (46-116) U/L 84 Troponin I (< or =60) ng/L < 50 Total Protein (6.4-8.2) g/dL 8.0 Albumin (3.4-5.0) g/dL 3.8 Urine Color (Yellow) Urine Clarity (Clear) Urine pH (5-8) Ur Specific [place] (1.005-1.025) Urine Protein (Neg-Trace) mg/dL Urine Ketones (Negative) mg/dL Urine Blood (Negative) Urine Nitrite (Negative) Urine Bilirubin (Negative) Urine Urobilinogen (Up to 0.2) mg/dL Ur Leukocyte Esterase (Negative) Urine Glucose (Negative) mg/dL Urine Opiates Screen (Negative) Urine Methadone Screen (Negative) Ur Barbiturates Screen (Negative) Ur Tricyclics Screen (Negative) Ur Amphetamines Screen (Negative) U Benzodiazepines Scrn (Negative) Urine Cocaine Screen (Negative) Ur THC Screen (Negative) Add-On Test Request DONE Range/Units 10/06/23 11:00 WBC (4.4-10.8) 10^3/uL RBC (3.93-5.22) 10^6/uL Hgb (11.2-15.7) g/dL Hct (36.0-46.0) % MCV (80-95) fL MCH (27.0-33.0) pg MCHC (32.0-36.0) % RDW (11.7-14.6) % Plt Count (130-400) 10^3/uL MPV (8.0-11.0) fL Immature Gran % % Neutrophils % % Lymphocytes % % Monocytes % % Eosinophils % % Basophils % % Nucleated RBC % (0.0-0.3) % Absolute Neutrophils (1.2-6.7) 10^3/uL Absolute Lymphocytes (1.2-3.4) 10^3/uL Absolute Monocytes (0.1-0.8) 10^3/uL Absolute Eosinophils (0.0-0.7) 10^3/uL Absolute Basophils (0.0-0.2) 10^3/uL PT (9.1-11.1) sec INR (0.9-1.1) APTT (23.6-32.8) sec D-Dimer (<500) ng/mlFEU VBG Lactate (0.6-1.4) mmol/L Sodium (136-145) mmol/L Potassium (3.5-5.1) mmol/L Chloride (98-107) mmol/L Carbon Dioxide (21.0-32.0) mmol/L Anion Gap (3-11) mmol/L BUN (7-18) mg/dL Creatinine (0.55-1.02) mg/dL Est GFR (CKD-EPI 2020) (mL/min/1.73m2) Glucose (74-106) mg/dL Hemoglobin A1c (<5.7) % Calcium (8.5-10.1) mg/dL Magnesium (1.8-2.4) mg/dL Total Bilirubin (0.2-1.0) mg/dL AST (15-37) U/L ALT (14-59) U/L Alkaline Phosphatase (46-116) U/L Troponin I (< or =60) ng/L Total Protein (6.4-8.2) g/dL Albumin (3.4-5.0) g/dL Urine Color (Yellow) Yellow Urine Clarity (Clear) Clear Urine pH (5-8) 7.5 Ur Specific [place] (1.005-1.025) 1.015 Urine Protein (Neg-Trace) mg/dL Negative Urine Ketones (Negative) mg/dL Negative Urine Blood (Negative) Negative Urine Nitrite (Negative) Negative Urine Bilirubin (Negative) Negative Urine Urobilinogen (Up to 0.2) mg/dL 0.2 Ur Leukocyte Esterase (Negative) Negative Urine Glucose (Negative) mg/dL Negative Urine Opiates Screen (Negative) Negative Urine Methadone Screen (Negative) Negative Ur Barbiturates Screen (Negative) Negative Ur Tricyclics Screen (Negative) Negative Ur Amphetamines Screen (Negative) Negative U Benzodiazepines Scrn (Negative) Negative Urine Cocaine Screen (Negative) Negative Ur THC Screen (Negative) Positive A Add-On Test Request Quality:SDOH Health Related Social Needs: Health related social needs risk of homeless Health related social needs details None PFSH All Active Problems (Updated 10/06/23 @ 12:14 by Nicole Loomis NP) Dizziness of unknown cause (Acute) Anxiety (Chronic) Visual disturbance (Acute) Family history of rectal cancer (Acute) Smoker (Acute) Fatty liver disease, nonalcoholic (Acute) Cervical disc disorder (Acute) Diabetes (Chronic) Hypercholesterolemia (Acute) Anxiety and depression (Chronic) Hyperlipemia (Acute) Family history of colon cancer (Acute) Neck pain (Acute) Vitamin A deficiency (Acute) Lumbar back pain with radiculopathy affecting left lower extremity (Acute) Medical History Abnormal mammogram FH: cholecystectomy 1990 CV Surgical History Hx of hysterectomy 2009 CV Hx of section 1990 [facility] Family History Father Alcohol use disorder Diabetes Heart disease Hypertension Mother Anxiety Cancer Asthma Depression Hypertension Sister Asthma Son Asthma Social History Smoking/Tobacco Use Status: Current every day Tobacco Type: cigarettes Tobacco: How many years used: 20 Quit status: not considering quitting Second Hand Exposure: No Smoking risk assessment performed?: Yes Alcohol Intake: current Alcohol Intake frequency: holidays/special occasions only Drug use: Never Substance use type: does not use Household members: significant other Housing: house Number of Children: 3 number of grandchildren: 6 Communication Needs: None Education Level: high school Do you need help understanding health information?: Never current occupation: [employer] Pets and animals: No Sexually active: Yes Do you think of yourself as: straight/heterosexual Current gender identity: female What is your relationship status?: living with partner How often do you talk on the phone with friends or family?: once per week How often do you attend hinduism or hoahaoism services?: decline to answer Do you belong to any clubs or organized social groups?: no Panel score (0-1 are the most socially isolated patients): 1 What type of physical activity do you participate in: none Connie/Zoroastrianism: Yazidi Special connie needs: No Seatbelt use: always Drive intox or ride w/intox hi lo driver: No Do you feel safe at home: Yes Do you feel safe in your relationship?: Yes
[2023-10-06 08:39] LABS: Lactate 1.8 mmol/L (0.6-1.4)
[2023-10-06 08:42] LABS: Abs Immature Grans 0.01 10^3/uL (0.0-0.06); Absolute Basophil Count 0.08 10^3/uL (0.0-0.2); Absolute Eosinophil Count 0.18 10^3/uL (0.0-0.7); Absolute Monocyte Count 0.45 10^3/uL (0.1-0.8); Basophils % 0.8 %; Eosinophils % 1.8 %; HCT 43.6 % (36.0-46.0); HGB 14.3 g/dL (11.2-15.7); Immature Grans % 0.1 %; Lymphocytes % 40.7 %; MCH 30.3 pg (27.0-33.0); MCHC 32.8 % (32.0-36.0); MCV 92 fL (80-95); MPV 9.8 fL (8.0-11.0); Monocytes % 4.6 %; Platelet Count 300 10^3/uL (130-400); RBC 4.72 10^6/uL (3.93-5.22); RDW 13.1 % (11.7-14.6); RDW-SD 44.5 fL; WBC 9.82 10^3/uL (4.4-10.8)
[2023-10-06] MEDS: Normal Saline 10 ML VIAL IJ (08:51)
[2023-10-06] MEDS: Normal Saline 1,000 ML 1000 ML IV (08:51)
[2023-10-06] MEDS: LORazepam 2 MG/ML VIAL 0.5 MG IVP (08:51)
[2023-10-06 09:02] LABS: ALT 34 U/L (14-59); AST 25 U/L (15-37); Albumin 3.8 g/dL (3.4-5.0); Alkaline Phosphatase 84 U/L (46-116); Anion Gap 10.2 mmol/L (3-11); BUN 7 mg/dL (7-18); Bilirubin, Total 0.47 mg/dL (0.2-1.0); CO2 26.8 mmol/L (21.0-32.0); CREATININE 0.7 mg/dL (0.55-1.02); Calcium 9.6 mg/dL (8.5-10.1); Chloride 105 mmol/L (98-107); Estimated GFR 104.65 (mL/min/1.73m2); Glucose 145 mg/dL (74-106); Magnesium 1.9 mg/dL (1.8-2.4); Potassium 4.2 mmol/L (3.5-5.1); Sodium 142 mmol/L (136-145); Troponin I < 50 ng/L (< or =60)
--- NOTE | 2023-10-06 09:13 | DI.RAD_ITS ---
Exam(s) XR CHEST 2V PA LATERAL EXAM: XR CHEST 2V PA LATERAL CLINICAL HISTORY: Dizziness TECHNIQUE: 2D digital imaging was performed of the chest. Three images were obtained. PA and later al views were obtained. COMPARISON: No exams were available for comparison FINDINGS: MEDIASTINUM: Normal. HEART: Normal. PULMONARY VASCULATURE: Normal. LUNGS: Clear. PLEURAL SPACE: No pleural effusion or pneumothorax. BONE:Within normal limits for the patient's age. OTHER FINDINGS:Normal. IMPRESSION: No acute pulmonary findings. DATA REPOSITORY: RADIATION DOSE DELIVERED:
[2023-10-06 09:25] LABS: PTT Activated 28.5 sec (23.6-32.8); Prothrombin Time 9.9 sec (9.1-11.1)
[2023-10-06] MEDS: Normal Saline - Diluent 50 ML VIAL IJ (09:28)
[2023-10-06] MEDS: Omnipaque 350 MG/ML 100 ML BTL IJ (09:29)
[2023-10-06] MEDS: LORazepam 2 MG/ML VIAL (09:32)
[2023-10-06 09:35] LABS: Lab Add On Test DONE
[2023-10-06 09:48] LABS: D-Dimer 394 ng/mlFEU (<500)
[2023-10-06 09:54] LABS: Hemoglobin A1C 12.5 % (<5.7)
[2023-10-06 11:20] LABS: Bilirubin Negative (Negative); Blood Negative (Negative); Clarity Clear (Clear); Glucose Negative (Negative); Ketones Negative (Negative); Leukocyte Esterase Negative (Negative); Nitrite Negative (Negative); Specific Gravity 1.015 (1.005-1.025); Urobilinogen 0.2 mg/dL (Up to 0.2); pH 7.5 (5-8)
[2023-10-06 11:30] LABS: *AMPHETAMINES SCREEN URINE Negative (Negative); *BARBITURATES SCREEN URINE Negative (Negative); *BENZODIAZEPINES SCREEN URINE Negative (Negative); Cannabinoids THC Positive (Negative); Cocaine Screen,Urine Negative (Negative); METHADONE URINE SCREEN Negative (Negative); OPIATES URINE SCREEN Negative (Negative)
[2023-10-06 11:32] LABS: Tricyclic Antidepressants Negative (Negative)
[2023-10-06 12:00] LABS: Troponin I < 50 ng/L (< or =60)
--- NOTE | 2023-10-06 12:06 | NUR.NOTE ---
Faxed referral to [facility] and let care management know to contact [facility] ophthalmology for diabetic,seeing floaters, Visual disturbances LISA Hair Note:
== END 2023-10-06 12:53 | disposition home or self-care (01) ==
PROVIDERS: Emergency Provider Registered Nurse Emergency; PCP Family Medicine
DX: F41.9 Anxiety disorder, unspecified; E11.9 Type 2 diabetes mellitus without complications; F17.210 Nicotine dependence, cigarettes, uncomplicated; Z79.4 Long term (current) use of insulin; H53.8 Other visual disturbances; R42 Dizziness and giddiness
CPT/HCPCS: 36415; 70496; 70498; 80053; 80307; 82962; 93005; 96361; 96374; 99285; 71046; 81003; 83036; 83605; 83735; 84484; 85025; 85379; 85610; 85730; 93010; 99284; J2060; J3490

== ENCOUNTER 2023-10-27 01:52 | Outpatient (CLI) | payer OTHER, SELFPAY ==
--- NOTE | 2023-10-27 09:00 | DI.MAMMO_ITS ---
Exam(s) MAMMO SCREENING EXAM: MAMMO SCREENING CLINICAL HISTORY: screening,z12.39 TECHNIQUE: Mammograms were interpreted according to the usual protocol including computer analysis w [employer] CAD system, tomosynthesis and C-view imaging. COMPARISON: [facility] BREAST SCREENING JORJE BILATERAL from 05/25/2017 [facility] BREAST DIAGNOSTIC UNILATERAL JORJE from 06/03/2017 [facility] BREAST SCREENING JORJE BILATERAL from 08/01/2021 FINDINGS: The breasts are composed of scattered fibroglandular densities, Breast Density category B. No suspicious masses or suspicious microcalcifications are seen. No skin thickening or abnormal axillary lymph nodes are seen. There has been no significant change from prior exams. IMPRESSION: BI-RADS Category 1, Negative mammogram Yearly screening mammography is recommended. Breast Density - Category B, scattered fibroglandular densities. A negative radiographic report should not delay biopsy if a dominant or clinically suspicious mass is present. Up to ten percent of cancers are not identified on mammography. A negative report may reinforce clinical impression. Adenosis and dense breasts may obscure an underlying neoplasm. False positive reports average 6 to 10%. Patient will receive a letter notifying them of these results.
--- NOTE | 2023-10-27 09:00 | DI.RAD_ITS ---
Exam(s) XR LUMBAR SPINE COMPLETE EXAM: XR LUMBAR SPINE COMPLETE CLINICAL HISTORY: low back pain,m54.50. TECHNIQUE: 2D digital imaging was performed. COMPARISON: CT CT ABDOMEN PELVIS CTA from 04/22/2020 FINDINGS: Five views There is no evidence of fracture, listhesis, nor pars interarticularis defects. Is mild disc space n arrowing at L5-S1 level. Other disc spaces exhibit normal height. Facet joints appear unremarkable. There is mild scoliosis convex left. Sacroiliac joints appear unremarkable. IMPRESSION: Moderate disc space narrowing at L5-S1 level which appears increased from CT images of 04/22/2020. O ther levels exhibit normal disc height. No obvious facet arthropathy. Mild scoliosis convex left. DATA REPOSITORY: RADIATION DOSE DELIVERED:
== END 2023-10-27 02:12 ==
LOC: DI 01:52
PROVIDERS: PCP Family Medicine; Visit Provider Nurse Practitioner Family
DX: M51.37 Other intervertebral disc degeneration, lumbosacral region (principal)
CPT/HCPCS: 77063; 77067; 72110

== ENCOUNTER 2023-11-01 04:03 | Outpatient (CLI) | payer OTHER, SELFPAY ==
[2023-11-01 14:05] LABS: Bilirubin Negative (Negative); Blood Negative (Negative); Clarity Clear (Clear); Glucose Negative (Negative); Ketones Negative (Negative); Leukocyte Esterase Negative (Negative); Nitrite Negative (Negative); Urobilinogen 0.2 mg/dL (Up to 0.2); pH 5.5 (5-8)
[2023-11-01 15:13] LABS: ALT 34 U/L (14-59); AST 18 U/L (15-37); Alkaline Phosphatase 77 U/L (46-116); Anion Gap 7.9 mmol/L (3-11); BUN 10 mg/dL (7-18); Bilirubin, Total 0.31 mg/dL (0.2-1.0); CO2 30.1 mmol/L (21.0-32.0); CREATININE 0.7 mg/dL (0.55-1.02); Calcium 9.8 mg/dL (8.5-10.1); Calculated LDL 167 mg/dL (<100); Chloride 106 mmol/L (98-107); Cholesterol 253 mg/dL (<200); Estimated GFR 104.65 (mL/min/1.73m2); Glucose 58 mg/dL (74-106); HDL Cholesterol 55 mg/dL (40-60); Potassium 3.7 mmol/L (3.5-5.1); Sodium 144 mmol/L (136-145); Total Protein 7.5 g/dL (6.4-8.2); Triglyceride 159 mg/dL (<150)
[2023-11-04 09:02] LABS: Fructosamine 338 mcmol/L (200 - 285)
== END 2023-11-01 04:04 | disposition home or self-care (01) ==
LOC: LBO 04:03
PROVIDERS: PCP Family Medicine; Visit Provider Family Medicine
DX: E11.9 Type 2 diabetes mellitus without complications (principal); R30.0 Dysuria; E78.5 Hyperlipidemia, unspecified
CPT/HCPCS: 36415; 80053; 80061; 81003; 82985

== ENCOUNTER 2024-01-28 09:05 | Day surgery (SDC) | payer OTHER, SELFPAY ==
--- NOTE | 2024-01-27 13:44 | W.PM.DSUDISC ---
Date of service: 01/28/24 Time of Service: 10:56 Discharge Plan Disposition Patient Disposition: Home Condition: Good Discharge Details Reason For Visit: screening colonoscopy Attending Provider: Vince Jama Primary Care Provider: Ralf Teague Home Meds and New Rx's Prescriptions: Continued fluticasone propionate 50 mcg/actuation spray,suspension 1 spray intranasal DAILY Qty: 16 0RF Rx Instructions: administer into each nostril (DME) pen needle, diabetic [Pen Needle] 31 gauge x 5/16 needle See Rx Instructions .ROUTE .MEDSUPPLY Qty: 100 3RF Rx Instructions: As directed to administer insulin once daily. Dispense covered brand. (DME) Blood Glucose Test Strip See Rx Instructions .ROUTE .MEDSUPPLY Qty: 200 3RF Rx Instructions: As directed to check blood glucose twice daily. On insulin. Dispense covered brand. Jardiance 10 mg tablet 10 mg PO DAILY Qty: 90 3RF Patient Comments: hasnt started this medication tramadol 50 mg tablet 50 mg PO Q8H PRN (Reason: pain) 7 Days Qty: 21 0RF rosuvastatin 5 mg tablet 5 mg PO DAILY Qty: 90 3RF cyanocobalamin (vitamin B-12) 500 mcg tablet 500 mcg PO DAILY Qty: 90 0RF insulin degludec [Tresiba FlexTouch U-100] 100 unit/mL (3 mL) insulin pen 34 unit subcut QAM acetaminophen 500 mg capsule 1,000 mg PO Q6H PRN Discontinued bisacodyl [Dulcolax (bisacodyl)] 5 mg tablet,delayed release (DR/EC) 5 mg PO ONCE Qty: 4 0RF Rx Instructions: Take per colonoscopy instructions provided by ordering providers office polyethylene glycol 3350 17 gram/dose powder 17 g PO ONCE Qty: 238 0RF Rx Instructions: Take per colonoscopy instructions provided by ordering providers office Discharge Instructions Instructions: Colon polyps Additional Instructions: Olena, was very nice meeting you today, and I hope you are comfortable during the procedure. Everything went very smoothly. I did find to remove a total of 5 polyps today. All of these were quite small, and I do not think any of them are anything to worry about. I will send these all off to the pathologist for their review as polyps, different varieties, and the nature of the polyps will help us guide the timing of your next colonoscopy. At the very longest, I would recommend 5 years based on your family history, but some types of polyps may shorten that interval. It usually takes about a week or so for the office to get those results, once we have them, we will be in touch. If you have any questions in the meantime, please do not hesitate to ask. 1. If tolerated, consume a soft, low fiber diet for 1-2 days. 2. Do not drive, drink alcohol, operate machinery, make critical decisions, or do activities that require coordination or balance for 24 hours. 3. Because air was put into your colon during the procedure, expelling air from your rectum (passing gas or farting) is normal. 4. You may not have a bowel movement for 1-3 days because of the colonoscopy prep. This is normal. 5. Go directly to the emergency room if you notice any of the following: Develop chills (warm to touch), or if you have a thermometer and your temperature is above 101 Difficulty breathing or difficultly swallowing Persistent vomiting Severe abdominal pain, other than gas cramps Severe chest pain Black, tarry stools Any bleeding ? exceeding one tablespoon 6. Call your physician if the site where your intravenous was started becomes red, swollen, painful, and warm to touch. 7. Your physician has reviewed your pre-procedure medications. Please continue to take those medications as previously ordered. You will be given specific information/education regarding any changes to your medications before leaving. Stand Alone Forms: Anesthesia Discharge InstDavon Canales (DSU) Activity:: Activity as Tolerated Diet:: As Tolerated Discharge Orders Discharge Orders: Discharge Order (Routine); Ordered 01/27/24 Ordered By: Vince Jama DS: Diagnosis Discharge Diagnosis (1) Encounter for screening colonoscopy: Status: Acute Asessment and Plan: Follow-up on polypectomy results
--- NOTE | 2024-01-27 13:46 | W.COLOREPORT ---
Date of service: 01/28/24 Time of Service: 11:03 Colonoscopy Report Date of procedure: 01/28/24 Pre-op diagnosis general: screening colonoscopy Post-op diagnosis procedure note: other (Colon polyps) Procedure: colonoscopy with polypectomy Surgeon: Vince Jama Anesthesia Type: General:No Airway Estimated blood loss (mL): 10 Pathology: other (0.25 cm flat polyp at 40 cm, 0.25 cm polyps at 20 cm x 4) Complications: None Disposition: same day Indications: Olena is a 53 year old woman with a family history of colon cancer who needs a screening colonscopy Prep: Miralax/Dulcolax Procedure Start Time: 10:30 Procedure End Time: 10:49 Retraction Time: 12 Findings: 0.25 cm flat polyp at 40 cm, 0.25 cm polyps at 20 cm x 4 Procedure Description: After the induction of anesthesia, and with the patient in left lateral decubitus position, I began by performing an external anorectal exam.? Perineum and skin were normal, as was the anal verge.? There was no evidence of external hemorrhoids.? Next, I performed a digital rectal exam.? I did appreciate any abnormal findings.? Next, I advanced a colonoscope into the rectal vault.? I performed retroflexion.? This appeared normal.? Using insufflation, I then advanced the colonoscope beyond the rectal folds and into the sigmoid colon before advancing towards the cecum.? The quality of the prep was adequate.? The scope was noted to be in the cecum by identification of the ileocecal valve and appendiceal orifice.? I then began withdrawing the colonoscope using repeated irrigation as necessary for full evaluation of the colonic mucosa. Around 40 cm from the anal verge was a 0.25 cm flat polyp. This was removed with cold forceps without any issues. There was minimal bleeding. Similarly, around 20 cm from the anus was a small cluster of polyps. ?In total there were 4. Each of these was less than 0.25 cm. All of these were removed with cold forceps with minimal bleeding. These were all sent as a single specimen. Once the scope was withdrawn to the level of the rectum, great care was taken to examine portions of the rectal folds.? Finally, the scope was withdrawn and the patient was brought to the same-day surgery recovery unit as the anesthetic wore off. ?The findings and instructions were shared with the patient prior to discharge. [facility] Bowel Prep [facility] Bowel Prep Right Colon: 3 Left Colon: 3 Transverse Colon: 3 Total Score: 9
[2024-01-28 09:05] VITALS: BP 129/84; PULSE 81; RESP 16; TEMP 36; O2SAT 98
[2024-01-28] MEDS: Normal Saline Flush 10 ML SYR IV (09:36)
--- NOTE | 2024-01-28 09:36 | ANES.PREOP_ITS ---
General Info Date of Service Date Performed: 01/28/24 Height: 5 ft 4 in Weight: 63.3 kg Body Mass Index (BMI): 23.9 Surgical Procedure: Operation Date: 01/28/24 10:35 Proposed Procedure Side Surgeon yuriy Jama MD Meds Allergies and Home Medications Allergies Allergy/AdvReac Type Severity Reaction Status Date / Time aspirin Allergy Severe Anaphylaxis Verified 01/28/24 09:18 bee venom protein (honey bee) Allergy Severe Unknown Verified 01/28/24 09:18 influenza A (H1N1) virus Allergy Severe Anaphylaxis Verified 01/28/24 09:18 vaccine m-[id number]-split 2008 (From influenza A (H1N1)) atorvastatin (From Lipitor) Allergy Intermediate Unknown Verified 01/28/24 09:18 lisinopril AdvReac Skin Rash Verified 01/28/24 09:18 Home Medication ?Medication ?Instructions ?Recorded acetaminophen 500 mg capsule 1,000 mg PO Q6H PRN 08/03/23 fluticasone propionate 50 1 spray intranasal DAILY #16 grams 10/15/23 mcg/actuation nasal spray,suspension cyanocobalamin (vitamin B-12) 500 500 mcg PO DAILY #90 tabs 11/02/23 mcg tablet rosuvastatin 5 mg tablet 5 mg PO DAILY #90 tabs 11/02/23 blood sugar diagnostic (Blood #200 ea 11/30/23 Glucose Test strips) pen needle, diabetic 31 gauge x #100 ea 11/30/23 5/16 (Pen Needle) empagliflozin 10 mg tablet 10 mg PO DAILY #90 tabs 01/25/24 (Jardiance) insulin degludec 100 unit/mL (3 34 unit subcut QAM 01/25/24 mL) subcutaneous pen (Tresiba FlexTouch U-100 insulin) tramadol 50 mg tablet 50 mg PO Q8H PRN pain 7 days #21 01/25/24 tabs Current Visit Medications: Current Medications Generic Name Dose Route Start Last Admin Trade Name Freq PRN Reason Stop Dose Admin IV Miscellaneous Supplies 1 each 01/28/24 06:00 Iv Access IV 01/28/24 23:59 DIRECTED JOVANI Ondansetron HCl 4 mg 01/27/24 13:50 Ondansetron 4 Mg/2 Ml Vial IVP 02/26/24 13:49 Q4H PRN PRN Nausea / Vomiting Sodium Chloride 0 ml 01/28/24 06:00 01/28/24 09:36 Normal Saline Flush 10 Ml Syr IV 01/28/24 23:59 10 ml PRN PRN Administration Sodium Chloride 0 ml 01/28/24 06:00 Normal Saline 10 Ml Vial IJ 01/28/24 23:59 DIRECTED PRN Sterile Water 0 ml 01/28/24 06:00 Water,Injection,Sterile 10 Ml Vial IJ 01/28/24 23:59 DIRECTED PRN PFSH Active Problems Active Problems: Problem Status Onset Code Encounter for screening colonoscopy Acute Z12.11 Cauda equina syndrome Acute G83.4 Radiculopathy Acute M54.10 Peripheral neuropathy Acute G62.9 Posterior vitreous detachment, left eye Acute 10/06/23 H43.812 Hypermature cataract Acute 10/06/23 H25.20 Low back pain Acute M54.50 Post-nasal drip Acute R09.82 Family history of rectal cancer Acute Z80.0 Smoker Acute F17.200 Fatty liver disease, nonalcoholic Acute K76.0 Cervical disc disorder Acute M50.90 Diabetes Chronic E11.9 Hypercholesterolemia Acute E78.00 Anxiety and depression Chronic F41.9, F32.A Hyperlipemia Acute E78.5 Family history of colon cancer Acute Z80.0 Neck pain Acute M54.2 Vitamin A deficiency Acute E50.9 Lumbar back pain with radiculopathy affecting left lower extremity Acute M54.16 Medical History Medical History Abnormal mammogram FH: cholecystectomy 1990 [facility] Surgical History Surgical History Hx of hysterectomy 2009 CV Hx of section 1990 [facility] Tobacco Smoking/Tobacco Use Status: Current every day Tobacco Type: cigarettes Second hand exposure: No Alcohol Alcohol Intake: current Alcohol intake frequency: holidays/special occasions only Substance Use Substance use: Never Substance use type: does not use Vital Signs and Lab Results Vital Signs Most Recent Vital Signs in EMR: Temp Pulse Resp BP Pulse Ox 36 C L 81 16 129/84 98 01/28/24 09:05 01/28/24 09:05 01/28/24 09:05 01/28/24 09:05 01/28/24 09:05 Point of Care Results Point of Care Results: Finger Stick Blood Glucose 90 01/28/24 09:23 Lab Results Blood Type / Crossmatch: No Data to Display Complete Blood Count: No Data to Display Complete Metabolic Panel: No Data to Display Liver Function Panel: No Data to Display Coagulation Panel: No Data to Display Cardiac Panel: No Data to Display Arterial Blood Gas: No Data to Display Venous Blood Gas: No Data to Display Pancreas Panel: No Data to Display Thyroid Panel: No Data to Display Infectious Disease: No Data to Display Blood Cultures: No Data to Display Toxicology Panel: No Data to Display Panel: No Data to Display Imaging and Studies Imaging and Studies Study information below may be from another EMR and interpreted by another provider. Please see original notes in EMR for more complete details. EKG Summary: Conclusion Sinus rhythm...normal P axis, V-rate 60- 99 sinus rhtyhm, normal axis, normal intervals, non ischmeic 10/06/23 Anesthesia Assessment and Plan Anesthesia History Personal History: No History of Anesthesia Complications Family History: No Family History of Anesthesia Complications Exercise Tolerance Exercise Tolerance: Metabolic Equivalents>4 Pertinent Negatives Pertinent Negatives: No Symptoms of GERD, No Major Cardiovascular Symptoms or Complaints, No Major Pulmonary Symptoms or Complaints and No History of CVA/TIA Cardiac & Pulmonary Exam Cardiac Exam: Normal S1/S2 Heart Sounds Pulmonary Exam: Clear Bilateral Breath Sounds Cardiac and Pulmonary Comment:: Smoker Implantable Cardiac Device Does patient have a Pacemaker or an ICD?: No Airway Exam Known Difficult Airway: No Mallampati Class: 2 Mouth Opening: Normal (> 3cm) Thyromental Distance: Greater than 3 cm Neck Range of Motion: Full ROM Neck Circumference: Normal Teeth Condition: Generalized Poor Dentition (many broken, none loose per patient) ASA Classification ASA Score: ASA 2 Emergency Case?: No NPO Status NPO Status: NPO Clears >2 hours, Solids >8 hours Status Status: History of Hysterectomy Anesthesia Plan Resuscitation Status: Full Code Anesthesia Technique: General Anesthesia Airway Planned: Natural Airway Monitors Used: Standard Monitors
[2024-01-28 09:40] VITALS: BMI 23.9
--- NOTE | 2024-01-28 10:44 | BOWEL_PTH ---
PATIENT: Olena Ashraf LOC: [facility] U#:[id number] AGE/SX: 53/F ROOM: RE01/28/[address]: Vince Jama MD : 1970 BED: DIS: 01/28/2024 SPEC #: [id number] RECD: 01/28/24 13:10 STATUS: JERED REQ #: [id number] PETTY: 01/28/24 10:[address]: Vince Jama DEPT: Surgical Specimen RECD BY: Laine Noble ENTERED: 01/28/24 13:12 SP TYPE: Bowel OTHR DR: Ralf Teague DO Tissues: 1 - BIOPSY BOWEL 2 - BIOPSY BOWEL Procedures: GROSS AND MICRO LEVEL 4 Comments: [id number]
[2024-01-28 10:52] VITALS: BP 118/74; PULSE 71; RESP 18; TEMP 35.9; O2SAT 100
--- NOTE | 2024-01-28 11:03 | W.ANESPOSTOP ---
Postoperative Evaluation Date, Time and Location Date Performed: 01/28/24 Time Performed: 10:54 Patient Location: Day Surgery Unit Vital Signs Most Recent Imported Vital Signs: Most Recent Vital Signs Temp Pulse Resp BP Pulse Ox 35.9 C L 71 18 118/74 100 01/28/24 10:52 01/28/24 10:52 01/28/24 10:52 01/28/24 10:52 01/28/24 10:52 Pain Score Most Recent Pain Score: Most Recent Pain Score Pain Level 0 01/28/24 10:52 Assessment Mental Status: Awake (Alert & Oriented to Patient Baseline) Airway and Respiratory Function: Patent airway with normal (patient baseline) respiratory exam Cardiovascular Function: Hemodynamically Stable Hydration Status: Adequately Hydrated Nausea & Vomiting: No Nausea or Vomiting Pain: Pt. Denies Any Pain Peripheral Nerve Block: Patient did not receive a nerve block
[2024-01-28 11:15] VITALS: BP 116/82; PULSE 74; RESP 16; TEMP 36.3; O2SAT 98
== END 2024-01-28 11:27 | disposition home or self-care (01) ==
LOC: SUR 09:05
PROVIDERS: PCP Family Medicine; Visit Provider Surgery
PROC: 0DJD8ZZ Inspection of Lower Intestinal Tract, Via Natural or Artificial Opening Endoscopic (ICD-10-PCS; CPT 45378; principal; 2024-01-28 10:30)
DX: Z12.11 Encounter for screening for malignant neoplasm of colon (principal); E11.9 Type 2 diabetes mellitus without complications; D12.5 Benign neoplasm of sigmoid colon; I10 Essential (primary) hypertension; Z80.0 Family history of malignant neoplasm of digestive organs
CPT/HCPCS: 45380; 88305; J2704

== ENCOUNTER 2024-03-02 01:30 | Outpatient (CLI) | payer OTHER, SELFPAY ==
--- NOTE | 2024-03-02 07:15 | DI.MRI_ITS ---
Exam(s) MR CERVICAL SPINE WO EXAM: MR CERVICAL SPINE WO CLINICAL HISTORY: L sided radicular symptoms,cervical disc disorder,m50.90 TECHNIQUE: Multiplanar multisequence MRI of the cervical spine was performed without intravenous con trast. COMPARISON: No exams were available for comparison FINDINGS: The examination is limited due to patient motion artifact. BONES: Vertebral body heights are maintained. Intervertebral disc spaces are normal. Alignment is nor mal. Degenerative endplate signal changes are seen at C6-C7. CERVICAL CORD: Craniovertebral junction is unremarkable. The cervical cord is normal size and signal intensity. SOFT TISSUES: Unremarkable. C2-3: No disc herniation or bulge is identified. No significant central spinal canal or neural forami nal stenosis. C3-4: No disc herniation or bulge is identified. No significant central spinal canal or neural forami nal stenosis. There are degenerative changes of the facets present. C4-5: No disc herniation or bulge is identified. No significant central spinal canal or neural forami nal stenosis. There are degenerative changes of the facets present. C5-6: There is mild prominence of the osteophyte disc complex. No significant central spinal canal s tenosis is seen. Degenerative changes of the left uncovertebral joint and facets are noted causing m ild left neural foraminal stenosis. No significant right neural foraminal stenosis. C6-7: There is prominence of the osteophyte disc complex. There are mild degenerative changes seen a t the left uncovertebral joints causing mild left neural foraminal narrowing. No significant central spinal canal or right neural foraminal stenosis is present. C7-T1: No disc herniation or bulge is identified. No significant central spinal canal or neural rufino inal stenosis IMPRESSION: 1. The examination is limited due to patient motion artifact. 2. Degenerative changes seen in the cervical spine particularly at C5-6 and C6-7 resulting in mild le ft neural foraminal stenosis at each of these levels. DATA REPOSITORY:
--- NOTE | 2024-03-02 07:15 | DI.MRI_ITS ---
Exam(s) MR LUMBAR SPINE WO EXAM: MR LUMBAR SPINE WO CLINICAL HISTORY: b/l radicular pain, L>R; bladder issues,radiculopathy,m54.10. TECHNIQUE: Multiplanar multisequence MRI of the Lumbar spine was performed. COMPARISON: CR XR LUMBAR SPINE COMPLETE from 10/27/2023 FINDINGS: Bones: The last intervertebral disc space is designated the L5/S1 level for the numbering purpose of this examination. The vertebral body heights are well maintained. There is a left convex curvature of the lumbar spine. There are degenerative endplate signal changes at L5-S1. There is disc desicca tion of the L5-S1 disc. Cord: The conus tip ends at the the appropriate level. It is of normal size and signal intensity. T12-L1: No disc herniations or bulges are present. No central spinal canal or neural foraminal stenos is. L1-2: No disc herniations or bulges are present. No central spinal canal or neural foraminal stenosis . L2-3: No disc herniations or bulges are present. No central spinal canal or neural foraminal stenosis . L3-4: No disc herniations or bulges are present. No central spinal canal or neural foraminal stenosis . L4-5: There is a mild diffuse disc bulge. There is some extension into the left neural foramen causi ng mild left neural foraminal narrowing. No central spinal canal or neural foraminal stenosis. L5-S1: There is a disc bulge present. There is extension into the left neural foramen causing modera te left neural foraminal stenosis. No significant central spinal canal or right neural foraminal aan nosis is seen.There does appear to be impingement upon the left S1 nerve root. Soft tissues: The visualized SI joints and sacrum are well maintained. The paraspinal soft tissues ar e unremarkable. IMPRESSION: 1. Eccentric disc bulge at L5-S1 extending into the left neural foramen. It impinges upon the left S 1 nerve root and causes moderate left neural foraminal stenosis. 2. Disc bulge at L4-L5 extending into the left neural foramen causing mild left neural foraminal sten osis. DATA REPOSITORY:
== END 2024-03-02 01:50 ==
LOC: DI 01:30
PROVIDERS: PCP Family Medicine; Visit Provider Family Medicine
DX: M48.061 Spinal stenosis, lumbar region without neurogenic claudication
CPT/HCPCS: 72141; 72148

== ENCOUNTER 2024-03-07 10:58 | Emergency (ER) | payer OTHER, SELFPAY ==
[2024-03-07 11:01] VITALS: BP 136/84; PULSE 75; RESP 18; TEMP 36.4; O2SAT 98
--- NOTE | 2024-03-07 11:18 | W.ED.GENAD ---
Discharge Plan Disposition Patient Disposition: Home Condition: Stable Discharge Details Clinical Impression: Dental infection, Hyperlipemia, Diabetes, Fatty liver disease, nonalcoholic Primary Care Provider: Ralf Teague ED Provider: Melia Gold Home Meds and New Rx's Prescriptions: New amoxicillin-pot clavulanate 875-125 mg tablet 1 tab PO BID 10 Days Qty: 20 0RF No Action fluticasone propionate 50 mcg/actuation spray,suspension 1 spray intranasal DAILY Qty: 16 0RF Rx Instructions: administer into each nostril (DME) pen needle, diabetic [Pen Needle] 31 gauge x 5/16 needle See Rx Instructions .ROUTE .MEDSUPPLY Qty: 100 3RF Rx Instructions: As directed to administer insulin once daily. Dispense covered brand. (DME) Blood Glucose Test Strip See Rx Instructions .ROUTE .MEDSUPPLY Qty: 200 3RF Rx Instructions: As directed to check blood glucose twice daily. On insulin. Dispense covered brand. Jardiance 10 mg tablet 10 mg PO DAILY Qty: 90 3RF Patient Comments: hasnt started this medication rosuvastatin 5 mg tablet 5 mg PO DAILY Qty: 90 3RF insulin degludec [Tresiba FlexTouch U-100] 100 unit/mL (3 mL) insulin pen 34 unit subcut QAM tramadol 50 mg tablet 50 mg PO Q8H PRN (Reason: pain) Qty: 84 0RF cyanocobalamin (vitamin B-12) 500 mcg tablet 500 mcg PO DAILY Qty: 90 0RF acetaminophen 500 mg capsule 1,000 mg PO Q6H PRN Discharge Instructions Instructions: Tooth Abscess ED Additional Instructions: You were seen in the emergency department today for evaluation of facial swelling that is concerning for a dental infection. In our emergency department you have a full physical examination performed, and were provided with your first dose of antibiotics. Please take this antibiotic as directed, until all of it is gone, even if you start to feel better. You need to keep your follow-up appointment on Wednesday and schedule a visit with a dentist for reevaluation. If you have worsening of your symptoms, develop a fever, swelling that spreads or involves your eye, or any other concerning symptoms you can return to the emergency department, and at that time would likely need to undergo imaging and have an IV and labs performed. Most antibiotics take 2 to 3 days to start working, please continue to use Tylenol and your home tramadol as needed for pain in that timeframe. Please maintain good hydration and nutrition and thank you for allowing us to be part of your care. HPI General Mode of arrival: ambulatory. Date/Time Provider Initiated Documentation: 03/07/24 11:05. Limitations to Documentation: no limitations. Information obtained by: patient and old records reviewed. HPI Narrative: HPI: This is a 53-year-old female patient with a past medical history significant for Light, hyperlipidemia, and poor dentition, who is presenting for evaluation of right facial swelling. The patient reports that she knows that she has some broken teeth and dental caries, states that last night she noted some swelling of her face and tenderness to palpation over her right face. She noted pus expressing from the inside of her mouth this morning, prompting her to seek care today for evaluation. She reports that hot and cold foods and liquids cause worsening of her pain, she has not had any associated fevers, nausea or vomiting. She states that she is not experiencing vision changes, though she did recently have cataract surgery and was appropriately using those cataract drops. No recent upper respiratory infection symptoms. She has been taking Tylenol and her home prescribed tramadol for management of the symptoms. Exam: Gen: Awake and alert, in no apparent distress HEENT: Non-icteric sclera, EOMs full, PERRL. Oral examination reveals poor dentition and dental carry disease, tenderness to palpation over the right cheek and buccal mucosa, no expression of purulence with palpation of the parotid gland. Neck: Supple,full range of motion without mass or swelling Lungs: No apparent respiratory distress, normal respiratory effort. CV: Appears well perfused, strong distal pulses Abdomen: Non-distended MSK: Moves 4 extremities without apparent limitation in ROM Skin: Visualized skin without rashes, cyanosis. Neuro: Normal Gait, no obvious focal deficits or facial asymmetry. Speaks in full, clear sentences. Psych: Appropriate for situation. MDM: This is a 53-year-old female patient presenting for evaluation of 1 day of right facial swelling. My differential includes but is not limited to dental infection, certainly considered suppurative parotitis, apical abscess, sinus infection. I did consider deep space infection and abscess, though the patient is hemodynamically well and has had a brief duration of symptoms. I had a shared decision-making conversation with the patient, who has scheduled follow-up with her provider on Wednesday, and is working on scheduling with her dentist for reevaluation. She states that she is desiring of avoiding advanced imaging and laboratory studies, which at this time I feel is reasonable given that she has close follow-up and the ability to return if she has worsening of symptoms. ED Course: I provided the patient with a first dose of Augmentin as well as a prescription for 10 days of treatment. I recommended continued conservative management of pain with Tylenol and home tramadol. At this time, the patient has had a full medical evaluation and is safe for discharge to home. They are hemodynamically stable, ambulatory, and tolerating PO. They are understanding of the follow-up plan and return precautions. They left our facility without incident. Melia Gold MD Related Data Home Medications ?Medication ?Instructions ?Recorded ?Confirmed acetaminophen 500 mg capsule 1,000 mg PO Q6H PRN 08/03/23 03/07/24 fluticasone propionate 50 1 spray intranasal DAILY #16 grams 10/15/23 03/07/24 mcg/actuation nasal spray,suspension rosuvastatin 5 mg tablet 5 mg PO DAILY #90 tabs 11/02/23 03/07/24 blood sugar diagnostic (Blood #200 ea 11/30/23 03/07/24 Glucose Test strips) pen needle, diabetic 31 gauge x #100 ea 11/30/23 03/07/24/ (Pen Needle) empagliflozin 10 mg tablet 10 mg PO DAILY #90 tabs 01/25/24 03/07/24 (Jardiance) insulin degludec 100 unit/mL (3 34 unit subcut QAM 01/25/24 03/07/24 mL) subcutaneous pen (Tresiba FlexTouch U-100 insulin) tramadol 50 mg tablet 50 mg PO Q8H PRN pain #84 tabs 02/11/24 03/07/24 cyanocobalamin (vitamin B-12) 500 500 mcg PO DAILY #90 tabs 02/25/24 03/07/24 mcg tablet amoxicillin 875 mg-potassium 1 tab PO BID 10 days #20 tabs 03/07/24 clavulanate 125 mg tablet Previous Rx's ?Medication ?Instructions ?Recorded fluticasone propionate 50 1 spray intranasal DAILY #16 grams 10/15/23 mcg/actuation nasal spray,suspension rosuvastatin 5 mg tablet 5 mg PO DAILY #90 tabs 11/02/23 blood sugar diagnostic (Blood #200 ea 11/30/23 Glucose Test strips) pen needle, diabetic 31 gauge x #100 ea 11/30/23/ (Pen Needle) empagliflozin 10 mg tablet 10 mg PO DAILY #90 tabs 01/25/24 (Jardiance) tramadol 50 mg tablet 50 mg PO Q8H PRN pain #84 tabs 02/11/24 cyanocobalamin (vitamin B-12) 500 500 mcg PO DAILY #90 tabs 02/25/24 mcg tablet amoxicillin 875 mg-potassium 1 tab PO BID 10 days #20 tabs 03/07/24 clavulanate 125 mg tablet Allergies Allergy/AdvReac Type Severity Reaction Status Date / Time aspirin Allergy Severe Anaphylaxis Verified 03/07/24 11:03 bee venom protein (honey bee) Allergy Severe Unknown Verified 03/07/24 11:03 influenza A (H1N1) virus Allergy Severe Anaphylaxis Verified 03/07/24 11:03 vaccine m-[id number]-split 2008 (From influenza A (H1N1)) atorvastatin (From Lipitor) Allergy Intermediate Unknown Verified 03/07/24 11:03 lisinopril AdvReac Skin Rash Verified 03/07/24 11:03 General Stated Complaint: DentalOral SANGITA: 3 Course Vital Signs Vital signs: Vital Signs Temperature 36.4 C 03/07/24 11:01 Pulse 75 03/07/24 11:01 Respiratory Rate 18 03/07/24 11:01 Blood Pressure 136/84 03/07/24 11:01 Pulse Oximetry 98 03/07/24 11:01 Temperature 36.4 C 03/07/24 11:01 Temperature Source Temporal Artery Scan 03/07/24 11:01 Pulse 75 03/07/24 11:01 Respiratory Rate 18 03/07/24 11:01 Blood Pressure 136/84 03/07/24 11:01 Blood Pressure Position Sitting 03/07/24 11:01 Pulse Oximetry 98 03/07/24 11:01 Oxygen Delivery Method Room Air 03/07/24 11:01 Oxygen Flow Rate 0 03/07/24 11:01 Pain Level 9 03/07/24 11:01 Medical Decision Making Quality:SDOH Health Related Social Needs: Health related social needs housing instability, housed, with risk of homelessness(Z59.811) Health related social needs details None PFSH All Active Problems (Updated 03/07/24 @ 11:19 by Melia Gold MD) Dental infection (Acute) Encounter for screening colonoscopy (Acute) Cauda equina syndrome (Acute) Radiculopathy (Acute) Peripheral neuropathy (Acute) Posterior vitreous detachment, left eye (Acute 10/06/23) [facility] - monitoring Hypermature cataract (Acute 10/06/23) Recommended for immediate cataract extraction w/Dr Vanegas Low back pain (Acute) Post-nasal drip (Acute) Family history of rectal cancer (Acute) Smoker (Acute) Fatty liver disease, nonalcoholic (Acute) Cervical disc disorder (Acute) Diabetes (Chronic) Hypercholesterolemia (Acute) Anxiety and depression (Chronic) Hyperlipemia (Acute) Family history of colon cancer (Acute) Neck pain (Acute) Vitamin A deficiency (Acute) Lumbar back pain with radiculopathy affecting left lower extremity (Acute) Medical History (Updated 03/07/24 @ 11:19 by Melia Gold MD) Abnormal mammogram FH: cholecystectomy 1990 [facility] Surgical History (Updated 01/28/24 @ 13:29 by Pretty Walsh) History of colonoscopy (~01/2024) Hx of hysterectomy 2009 CV Hx of section 1990 [facility] Family History Father Alcohol use disorder Diabetes Heart disease Hypertension Mother Anxiety Cancer Asthma Depression Hypertension Sister Asthma Son Asthma Social History Smoking/Tobacco Use Status: Current every day Tobacco Type: cigarettes Tobacco: How many years used: 20 Quit status: not considering quitting Second Hand Exposure: No Smoking risk assessment performed?: Yes Alcohol Intake: current Alcohol Intake frequency: holidays/special occasions only Drug use: Never Substance use type: does not use Household members: significant other Housing: house Number of Children: 3 number of grandchildren: 6 Communication Needs: None Education Level: high school Do you need help understanding health information?: Never 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 Pets and animals: No Sexually active: Yes Do you think of yourself as: straight/heterosexual Current gender identity: female What is your relationship status?: living with partner How often do you talk on the phone with friends or family?: once per week How often do you attend roman catholic or hinduism services?: decline to answer Do you belong to any clubs or organized social groups?: no Panel score (0-1 are the most socially isolated patients): 1 What type of physical activity do you participate in: none Connie/Yazidi: Taoist Special connie needs: No Seatbelt use: always Drive intox or ride w/intox superintendent drivers: No Do you feel safe at home: Yes Do you feel safe in your relationship?: Yes
[2024-03-07] MEDS: Amoxicillin 875/Clav. 125 TAB PO (11:23)
[2024-03-07] MEDS: Amox. 875/Clav. 125, 2 TABS/BTL 1 TAB PO (11:25)
== END 2024-03-07 11:32 | disposition home or self-care (01) ==
PROVIDERS: Emergency Provider Emergency Medicine; PCP Family Medicine
DX: K08.89 Other specified disorders of teeth and supporting structures (principal); K04.7 Periapical abscess without sinus; E11.9 Type 2 diabetes mellitus without complications; E78.5 Hyperlipidemia, unspecified; K75.81 Nonalcoholic steatohepatitis (NASH); F17.210 Nicotine dependence, cigarettes, uncomplicated; Z79.4 Long term (current) use of insulin; Z79.84 Long term (current) use of oral hypoglycemic drugs
CPT/HCPCS: 99283

== ENCOUNTER 2024-07-07 13:05 | Outpatient (CLI) | payer MEDICAID, SELFPAY ==
--- NOTE | 2024-07-07 13:00 | RT.EKG_ITS ---
APPROVED REPORT Exam: Resting ECG Reason for Exam: Pre-op Exam Patient Location: O HR:68 bpm ECG Measurements Heart Rate 68 AXIS NC 144 P 55 QRSd 95 QRS 55 QT 418 T 53 QTc 445 Conclusion Sinus rhythm...normal P axis, V-rate 50- 99 Normal Electrocardiogram
== END 2024-07-07 13:06 | disposition home or self-care (01) ==
LOC: DI.KIM 13:06
PROVIDERS: PCP Family Medicine; Visit Provider Family Medicine
DX: Z01.818 Encounter for other preprocedural examination (principal)
CPT/HCPCS: 93010

== ENCOUNTER 2024-07-07 13:59 | Outpatient (CLI) | payer MEDICAID, SELFPAY ==
[2024-07-07 14:16] LABS: Abs Immature Grans 0.01 10^3/uL (0.0-0.06); Absolute Basophil Count 0.05 10^3/uL (0.0-0.2); Absolute Eosinophil Count 0.26 10^3/uL (0.0-0.7); Absolute Lymphocyte Count 3.83 10^3/uL (1.2-3.4); Absolute Monocyte Count 0.58 10^3/uL (0.1-0.8); Absolute Neutrophil Count 4.97 10^3/uL (1.2-6.7); Basophils % 0.5 %; Eosinophils % 2.7 %; HCT 38.8 % (36.0-46.0); HGB 12.6 g/dL (11.2-15.7); Immature Grans % 0.1 %; Lymphocytes % 39.5 %; MCH 30.7 pg (27.0-33.0); MCHC 32.5 % (32.0-36.0); MCV 94 fL (80-95); MPV 9.6 fL (8.0-11.0); Neutrophils % 51.2 %; Platelet Count 268 10^3/uL (130-400); RBC 4.11 10^6/uL (3.93-5.22); RDW 13.7 % (11.7-14.6); RDW-SD 47.8 fL
[2024-07-07 14:31] LABS: Hemoglobin A1C 7.3 % (<5.7)
[2024-07-07 14:53] LABS: Anion Gap 9.9 mmol/L (3-11); BUN 12 mg/dL (7-18); CO2 28.1 mmol/L (21.0-32.0); CREATININE 0.7 mg/dL (0.55-1.02); Calcium 9.6 mg/dL (8.5-10.1); Chloride 106 mmol/L (98-107); Glucose 142 mg/dL (74-106); Potassium 3.9 mmol/L (3.5-5.1); Sodium 144 mmol/L (136-145)
== END 2024-07-07 14:00 | disposition home or self-care (01) ==
LOC: LBO 14:00
PROVIDERS: PCP Family Medicine; Visit Provider Family Medicine
DX: Z01.818 Encounter for other preprocedural examination (principal)
CPT/HCPCS: 36415; 80048; 83036; 85025

== ENCOUNTER 2024-08-09 10:37 | Outpatient (CLI) | payer MEDICAID, SELFPAY ==
[2024-08-09 10:52] VITALS: BP 146/76; PULSE 82; RESP 20; TEMP 36.7; O2SAT 98
[2024-08-09 11:14] VITALS: PULSE 65; O2SAT 99
[2024-08-09 11:20] VITALS: PULSE 74; O2SAT 99
[2024-08-09] MEDS: Nerve Block Tray 1 EACH MC (11:34)
[2024-08-09] MEDS: methylPREDNISolone ACETATE 40 MG/ML VIAL IJ (11:35)
[2024-08-09] MEDS: Lidocaine 2% Pres-Free 5 ML VIAL IJ (11:35)
--- NOTE | 2024-08-09 12:58 | PDOC.PAIN_ITS ---
Date of service: 08/09/24 Time of Service: 12:59 US Guided Injections Type of Ultrasound Guided Injection: Left Piriformis Injection Pre-Procedural Evaluation This is a direct referral for this procedure. The patient does have pain to the left buttocks with radiation down the left leg to the posterior calf. Referral Patient has been referred to the [facility] for Left Piriformis Injection for a chief complaint of Left buttock pain with radiation to the posterior left calf Pre-Procedural Pain Score Pre-procedural pain score: 6/10 Reason for Exam Buttock pain Patient Interview Patient was interviewed and medical record reviewed: Yes There were no contraindications to performing an US guided procedure. Risks,expected side effects, potential benefits were reviewed. The patient consent form was signed and witnessed. Standard time out procedure was performed. Patient Safety No skin abnormalities at the proposed injection site Procedure Description No sedation given for procedure Patient was placed in the prone position and the following Pulse Ox applied. Pre-Procedure ultrasound scanning performed using a Linear 9 MHz probe Site Preparation Chloroprep Local Anesthesia Skin and subcutaneous tissues anesthetized with: 2 mL of Lidocaine 2%. A 21 G 3.5 Pajunk ultrasound needle was placed under live US guidance using an in-plane approach to the target area. After visualization of the needle tip at the target area Dep-Medrol 80mg per cc and Lidocaine 2% were used. Total of Injectate/Medication Note: 1 cc of Depomedrol (80 mg/cc) and 4 cc of 2% Lidocaine Negative aspiration for blood. [place] were removed without difficulty. Ultrasound images were captured and stored. Patient Mental Status Patient was alert and awake during procedure Vital Signs Vital signs were stable throughout the procedure and recorded by nursing. Follow Up/Discharge Follow up plans and appointments were discussed with patient. Post procedure instruction was given as documented in nursing documentation. Discharge criteria met and patient discharged from [facility]: Yes Post Procedure Pain Post Procedure Pain: 4/10 Patient tolerated procedure well Procedure Outcome: Successful Non US Guided Injections Procedure Description Patient was placed in the prone position Post Procedure Pain Post Procedure Pain: 4/10 Coding Conscious Sedation used for procedure: No CPT Codes: TPI Single/Multi 1 or 2 Muscles - 04039 ([id number] ~G) Left Piriformis Additional Codes: Date of Service (58751) Date of service: 08/09/24 Visualization of the needle tip - Ultrasound images captured/stored: Yes ([id number])
== END 2024-08-09 10:38 | disposition home or self-care (01) ==
PROVIDERS: PCP Family Medicine; Visit Provider Preventive Medicine Occupational Medicine
DX: G57.02 Lesion of sciatic nerve, left lower limb (principal)
CPT/HCPCS: 20552; 76942; J1010

== ENCOUNTER → 2025-01-16 00:52 | Outpatient (CLI) | payer MEDICAID, SELFPAY ==
--- NOTE | 2025-01-16 06:15 | DI.US_ITS ---
Exam(s) US CAROTID EXAM: US CAROTID CLINICAL HISTORY: Episodes of passing out,syncope,r55. TECHNIQUE: Ultrasound carotids performed using grayscale, color-flow, and spectral Doppler imaging. COMPARISON: No exams were available for comparison FINDINGS: RIGHT CAROTID ARTERY: Plaque: Minimal. Velocity elevation: None. LEFT CAROTID ARTERY: Plaque: There is moderate calcific plaque seen in the left common carotid artery. Velocity elevation: None. VERTEBRAL ARTERIES: Antegrade flow. Measurements: R Bulb: 93.4cm/s PS / 21.6cm/s ED R CCA: 84.1cm/s PS / 24.5cm/s ED R ECA: 117.4cm/s PS / 12.9cm/s ED R ICA Prox: 70.9cm/s PS / 20.7cm/s ED R ICA Mid: 96.6cm/s PS / 25.4cm/s ED R ICA Distal: 92.9cm/s PS /30.8cm/s ED R Vert: 72cm/s PS / 19.7cm/s ED R SVR: 1.1 R DVR: 1 L Bulb: 63.7cm/s PS / 27.2cm/s ED L CCA: 146.6cm/s PS / 30.77cm/s ED L ECA: 140.4cm/s PS / 18.1cm/s ED L ICA Prox: 117.4cm/s PS / 32.5cm/s ED L ICA Mid: 102cm/s PS / 30.8cm/s ED L ICA Distal: 71cm/s PS / 28.3cm/s ED L Vert: 66.3cm/s PS / 26.7cm/s ED L SVR: 0.8 L DVR: 0.9 IMPRESSION: No evidence for hemodynamically significant internal carotid artery stenosis. Criteria for Carotid Stenosis: Normal: ICA PSV <125 cm/s no plaque or intimal thickening is visible. <50% stenosis: ICA PSV <125 cm/s and plaque or intimal thickening is visible. 50-69% stenosis: ICA PSV is 125-250 cm/s and plaque is visible. >70% stenosis to near occlusion: ICA PSV >250 cm/s with visible plaque and luminal narrowing. DATA REPOSITORY:
== END ==
LOC: DI 00:52
PROVIDERS: PCP Family Medicine; Visit Provider Family Medicine
DX: R55 Syncope and collapse (principal)
CPT/HCPCS: 93880